=== PATIENT | female | born 1945 | race Caucasian/White ===

== ENCOUNTER 2016-10-24 17:54 | Emergency (ER) | payer OTHER ==
[~2016-10-24] VITALS: Ht 157.5 cm; Wt 97.5 kg
[~2016-10-24 17:54] MED LIST: CEPH-568 PO; FURO-149 PO; LISI-600 PO; WARF4TAB2 PO
[2016-10-24 17:55] VITALS: BP_SYST 133
--- NOTE | 2016-10-24 17:59 | NUR ---
Pt placed to ER waiting room in W/C, in stable condition. Dr. Glez made aware.
--- NOTE | 2016-10-24 18:03 | NUR ---
Patient to ER bed 4 to gown for evaluation. Side rails up. Report given to Orin IBARRA.
--- NOTE | 2016-10-24 18:05 | NUR ---
Pt. to ER AAox4 presented om wheelchair c/o swelling and pain to her right lower leg ankle and foot, states that she is unable to bear weight on affected foot, LROM of affected extremity, states has a Hx of DVT, c/o pain 03/01 denies SOB
--- NOTE | 2016-10-24 18:10 | NUR ---
Dr. Glez at bedside examining the pt.
--- NOTE | 2016-10-24 18:17 | NUR ---
lab at bedside for blood draw
[2016-10-24 18:23] LABS: BASOPHILS # (AUTO) 0.1 K/uL (0.0-0.2); BASOPHILS % (AUTO) 0.6 % (0.0-2.0); EOSINOPHILS # (AUTO) 0.1 K/uL (0.0-0.4); EOSINOPHILS % (AUTO) 1.4 % (0.0-4.0); HEMATOCRIT 32.3 % (36-48); HEMOGLOBIN 10.6 g/dL (12.0-16.0); LYMPHOCYTES # (AUTO) 1.2 K/uL (1.0-5.5); LYMPHOCYTES % (AUTO) 11.5 % (20.5-51.5); MEAN CORPUSCULAR HEMOGLOBIN 27 pg (27-31); MEAN CORPUSCULAR HGB CONC 33 % (32-36); MEAN CORPUSCULAR VOLUME 83 fL (79.0-98.0); MONOCYTES # (AUTO) 0.6 K/uL (0.0-1.0); MONOCYTES % (AUTO) 5.8 % (1.7-9.3); NEUTROPHILS # (AUTO) 8.6 K/uL (1.8-7.7); NEUTROPHILS % (AUTO) 80.7 % (40.0-70.0); PLATELET COUNT (AUTO) 288 K/uL (130-430); RED BLOOD CELL COUNT(AUTO) 3.88 MIL/uL (4.2-6.2); RED CELL DISTRIBUTION WIDTH 12.4 % (9.0-15.0); WHITE BLOOD COUNT (AUTO) 10.6 K/uL (4.8-10.8)
[2016-10-24 18:39] LABS: ANION GAP 8 (5-15); CALCIUM 9.2 mg/dL (8.4-11.0); CHLORIDE 102 mmol/L (98-107); CREATININE 2.23 mg/dL (0.55-1.30); GLUCOSE 107 mg/dL (70-99); POTASSIUM 4.5 mmol/L (3.5-5.1); SODIUM SERUM 135 mmol/L (136-145); UREA NITROGEN, BLOOD 52 mg/dL (8-21)
[2016-10-24 18:44] LABS: ALANINE AMINOTRANSFERASE 18 U/L (12-78); ALBUMIN 4.4 g/dL (3.4-4.8); ASPARTATE AMINOTRANSFERASE 20 U/L (10-37); TOTAL BILIRUBIN 0.6 mg/dL (0.0-1.0); TOTAL PROTEIN, SERUM 8.5 g/dL (6.4-8.3)
[2016-10-24 19:30] VITALS: BP_SYST 121
--- NOTE | 2016-10-24 19:30 | NUR ---
Patient given written and verbal discharge instructions and verbalizes understanding. ER MD Dr. Glez discussed with patient the results and treatment provided. Patient in stable condition. ID arm band removed. No Rx given. Patient educated on pain management and to follow up with PMD. Pain Scale 0/10 Opportunity for questions provided and answered.
== END 2016-10-24 19:30 | disposition home or self-care (01) ==
LOC: SED 17:54
DX: R60.0 Localized edema (principal); I12.9 Hypertensive chronic kidney disease with stage 1 through stage 4 chronic kidney disease, or unspecified chronic kidney disease; N18.9 Chronic kidney disease, unspecified; Z86.718 Personal history of other venous thrombosis and embolism
CPT/HCPCS: 36415; 80053; 85025; 85379; 93971; 99285

== ENCOUNTER 2018-01-22 06:28 | Emergency (ER) | payer OTHER ==
[~2018-01-22] VITALS: Ht 157.5 cm; Wt 99.8 kg
[~2018-01-22 06:28] MED LIST changes: -CEPH-568 PO; -FURO-149 PO
[2018-01-22 06:32] VITALS: BP_SYST 126
[2018-01-22] MEDS ORDERED: MORPHINE 4 MG/ML INJ. SYRINGE IM ONE (07:00)
[2018-01-22 07:45] VITALS: BP_SYST 136
== END 2018-01-22 07:46 | disposition home or self-care (01) ==
LOC: SED 06:28
DX: L03.115 Cellulitis of right lower limb (principal); I10 Essential (primary) hypertension; Z86.718 Personal history of other venous thrombosis and embolism
CPT/HCPCS: 96372; 99283; J2270

== ENCOUNTER 2018-01-25 19:45 | Inpatient (IN) | payer OTHER ==
[~2018-01-25] VITALS: Ht 157.5 cm; Wt 103.9 kg
[2018-01-25 20:00] VITALS: BP_SYST 138
[2018-01-25 20:25] VITALS: BP_SYST 154
[2018-01-25] MEDS ORDERED: DIPHENHYDRAMINE INJ 50 MG/ML VIAL IVP ONE (20:30)
[2018-01-25] MEDS ORDERED: MORPHINE 2 MG/ML INJ. SYRINGE IVP ONE (20:30)
[2018-01-25 20:52] LABS: EOSINOPHILS # (AUTO) 0.2 K/uL (0.0-0.4); HEMOGLOBIN 9.7 g/dL (12.0-16.0); MEAN CORPUSCULAR HEMOGLOBIN 28 pg (27-31); MEAN CORPUSCULAR VOLUME 83 fL (79.0-98.0); NEUTROPHILS # (AUTO) 9.1 K/uL (1.8-7.7)
[2018-01-25 20:58] LABS: BASOPHILS # (AUTO) 0.2 K/uL (0.0-0.2); BASOPHILS % (AUTO) 2.2 % (0.0-2.0); HEMATOCRIT 28.8 % (36-48); LYMPHOCYTES % (AUTO) 8.8 % (20.5-51.5); MEAN CORPUSCULAR HGB CONC 34 % (32-36); MONOCYTES # (AUTO) 0.6 K/uL (0.0-1.0); MONOCYTES % (AUTO) 5.7 % (1.7-9.3); NEUTROPHILS % (AUTO) 81.3 % (40.0-70.0); PLATELET COUNT (AUTO) 273 K/uL (130-430); RED BLOOD CELL COUNT(AUTO) 3.47 MIL/uL (4.2-6.2); RED CELL DISTRIBUTION WIDTH 12.3 % (9.0-15.0); WHITE BLOOD COUNT (AUTO) 11.1 K/uL (4.8-10.8)
[2018-01-25 21:08] LABS: PROTHROMBIN TIME 9.7 SECS (9.5-12.5)
[2018-01-25 21:16] LABS: ANION GAP 11 (5-15); CALCIUM 8.5 mg/dL (8.4-11.0); CHLORIDE 100 mmol/L (98-107); CREATININE 1.88 mg/dL (0.55-1.30); GLUCOSE 123 mg/dL (70-99); POTASSIUM 4.4 mmol/L (3.5-5.1); SODIUM SERUM 133 mmol/L (136-145); UREA NITROGEN, BLOOD 35 mg/dL (8-21)
[2018-01-25 21:29] LABS: TOTAL BILIRUBIN 0.6 mg/dL (0.0-1.0)
[2018-01-25 21:30] LABS: ALANINE AMINOTRANSFERASE 48 U/L (12-78); ALBUMIN 3.4 g/dL (3.4-4.8); ASPARTATE AMINOTRANSFERASE 29 U/L (10-37); URIC ACID 7.7 mg/dL (2.4-7.0)
[2018-01-25] MEDS ORDERED: FURO-149 PO (22:10)
[2018-01-25] MEDS ORDERED: ONDANSETRON HCL 4 MG/2 ML VIAL IVP PRN (23:00)
[2018-01-25] MEDS ORDERED: MORPHINE 2 MG/ML INJ. SYRINGE IVP PRN (23:00)
[2018-01-25] MEDS ORDERED: cefTRIAXone 1 GM IVPB PREMIX 50 ML IV SCH (23:00)
[2018-01-25] MEDS ORDERED: LORazepam 2 MG/ML VIAL IVP PRN (23:00)
[2018-01-25] MEDS ORDERED: ACETAMINOPHEN 325 MG TABLET PO PRN (23:00)
[2018-01-25] MEDS ORDERED: HYDROcodone/ACETAMIN 5-325 MG TAB (NORCO/ VICODIN) PO PRN (23:00)
[2018-01-25] MEDS ORDERED: HYDROcodone/ACETAMIN 10-325 MG TAB PO PRN (23:00)
[2018-01-25] MEDS: D5/0.45 NS 1,000 ML IV SCH (23:50)
[2018-01-26] MEDS ORDERED: cefTRIAXone 1 GM IVPB PREMIX 50 ML IV ONE (00:18)
[2018-01-26 06:16] LABS: BASOPHILS % (AUTO) 0.5 % (0.0-2.0); EOSINOPHILS # (AUTO) 0.3 K/uL (0.0-0.4); HEMATOCRIT 27.5 % (36-48); HEMOGLOBIN 9.3 g/dL (12.0-16.0); LYMPHOCYTES # (AUTO) 1.4 K/uL (1.0-5.5); LYMPHOCYTES % (AUTO) 17.8 % (20.5-51.5); MEAN CORPUSCULAR HEMOGLOBIN 29 pg (27-31); MEAN CORPUSCULAR HGB CONC 34 % (32-36); MEAN CORPUSCULAR VOLUME 84 fL (79.0-98.0); MONOCYTES # (AUTO) 0.6 K/uL (0.0-1.0); MONOCYTES % (AUTO) 7.7 % (1.7-9.3); NEUTROPHILS # (AUTO) 5.6 K/uL (1.8-7.7); PLATELET COUNT (AUTO) 252 K/uL (130-430); RED BLOOD CELL COUNT(AUTO) 3.25 MIL/uL (4.2-6.2); RED CELL DISTRIBUTION WIDTH 12.6 % (9.0-15.0); WHITE BLOOD COUNT (AUTO) 7.9 K/uL (4.8-10.8)
[2018-01-26 06:20] LABS: ANION GAP 8 (5-15); CALCIUM 8.2 mg/dL (8.4-11.0); CHLORIDE 105 mmol/L (98-107); CREATININE 1.76 mg/dL (0.55-1.30); GLUCOSE 110 mg/dL (70-99); POTASSIUM 4.6 mmol/L (3.5-5.1); SODIUM SERUM 137 mmol/L (136-145); UREA NITROGEN, BLOOD 34 mg/dL (8-21)
[2018-01-26 06:26] LABS: PHOSPHORUS 3.4 mg/dL (2.7-4.5)
[2018-01-26 08:04] VITALS: BP_SYST 104
[2018-01-26] MEDS: D5/0.45 NS 1,000 ML IV SCH ×2 (08:52→20:11)
[2018-01-26] MEDS: FUROSEMIDE 40 MG TABLET PO SCH (09:08)
[2018-01-26] MEDS: LISINOPRIL 20 MG TABLET PO SCH (09:08)
[2018-01-26 12:20] VITALS: BP_SYST 115
[2018-01-26] MEDS: INDOMETHACIN 25 MG CAPSULE(INDOCIN) PO SCH ×2 (15:11→20:11)
[2018-01-26] MEDS: VANCOMYCIN HCL 1,500 MG in NS 250 ML IV SCH (15:11)
[2018-01-26 16:15] VITALS: BP_SYST 123
[2018-01-26] MEDS: WARFARIN SODIUM 4 MG TABLET PO SCH (17:13)
[2018-01-26 20:00] VITALS: BP_SYST 104
[2018-01-26 23:40] VITALS: BP_SYST 114
[2018-01-27] MEDS: D5/0.45 NS 1,000 ML IV SCH ×3 (04:36→23:25)
[2018-01-27 06:58] LABS: BASOPHILS % (AUTO) 0.6 % (0.0-2.0); EOSINOPHILS # (AUTO) 0.5 K/uL (0.0-0.4); EOSINOPHILS % (AUTO) 6.1 % (0.0-4.0); HEMATOCRIT 31.4 % (36-48); HEMOGLOBIN 10.5 g/dL (12.0-16.0); LYMPHOCYTES # (AUTO) 1.8 K/uL (1.0-5.5); LYMPHOCYTES % (AUTO) 22.4 % (20.5-51.5); MEAN CORPUSCULAR HEMOGLOBIN 28 pg (27-31); MEAN CORPUSCULAR HGB CONC 33 % (32-36); MEAN CORPUSCULAR VOLUME 85 fL (79.0-98.0); MONOCYTES # (AUTO) 0.6 K/uL (0.0-1.0); MONOCYTES % (AUTO) 6.9 % (1.7-9.3); NEUTROPHILS # (AUTO) 5.1 K/uL (1.8-7.7); PLATELET COUNT (AUTO) 306 K/uL (130-430); RED BLOOD CELL COUNT(AUTO) 3.72 MIL/uL (4.2-6.2); RED CELL DISTRIBUTION WIDTH 12.5 % (9.0-15.0)
[2018-01-27 07:03] LABS: ANION GAP 13 (5-15); C-REACTIVE PROTEIN QUANT 7.4 mg/dL (0-0.5); CALCIUM 8.4 mg/dL (8.4-11.0); CHLORIDE 103 mmol/L (98-107); CREATININE 2.23 mg/dL (0.55-1.30); GLUCOSE 81 mg/dL (70-99); POTASSIUM 4.4 mmol/L (3.5-5.1); SODIUM SERUM 137 mmol/L (136-145); UREA NITROGEN, BLOOD 38 mg/dL (8-21); URIC ACID 7.4 mg/dL (2.4-7.0)
[2018-01-27 07:48] LABS: ERYTHROCYTE SEDIMENTATION RATE 78 MM/HR (0-20)
[2018-01-27 08:00] VITALS: BP_SYST 112
[2018-01-27 08:09] LABS: PROTHROMBIN TIME 9.8 SECS (9.5-12.5)
[2018-01-27] MEDS: FUROSEMIDE 40 MG TABLET PO SCH (08:46)
[2018-01-27] MEDS: INDOMETHACIN 25 MG CAPSULE(INDOCIN) PO SCH ×3 (08:46→20:07)
[2018-01-27] MEDS: LISINOPRIL 20 MG TABLET PO SCH (08:47)
[2018-01-27 12:20] VITALS: BP_SYST 114
[2018-01-27 16:02] VITALS: BP_SYST 118
[2018-01-27] MEDS: WARFARIN SODIUM 4 MG TABLET PO SCH (17:37)
[2018-01-27 19:37] VITALS: BP_SYST 119
[2018-01-27 23:28] VITALS: BP_SYST 112
[2018-01-28 06:49] LABS: PROTHROMBIN TIME 10.2 SECS (9.5-12.5)
[2018-01-28 06:51] LABS: BASOPHILS % (AUTO) 0.2 % (0.0-2.0); EOSINOPHILS # (AUTO) 0.5 K/uL (0.0-0.4); EOSINOPHILS % (AUTO) 6.2 % (0.0-4.0); HEMATOCRIT 28.3 % (36-48); HEMOGLOBIN 9.5 g/dL (12.0-16.0); LYMPHOCYTES # (AUTO) 1.1 K/uL (1.0-5.5); MEAN CORPUSCULAR HEMOGLOBIN 28 pg (27-31); MEAN CORPUSCULAR HGB CONC 33 % (32-36); MEAN CORPUSCULAR VOLUME 84 fL (79.0-98.0); MONOCYTES # (AUTO) 0.5 K/uL (0.0-1.0); MONOCYTES % (AUTO) 6.7 % (1.7-9.3); NEUTROPHILS # (AUTO) 5.8 K/uL (1.8-7.7); NEUTROPHILS % (AUTO) 72.9 % (40.0-70.0); PLATELET COUNT (AUTO) 271 K/uL (130-430); RED BLOOD CELL COUNT(AUTO) 3.36 MIL/uL (4.2-6.2); RED CELL DISTRIBUTION WIDTH 12.2 % (9.0-15.0); WHITE BLOOD COUNT (AUTO) 7.9 K/uL (4.8-10.8)
[2018-01-28 07:21] LABS: ALANINE AMINOTRANSFERASE 40 U/L (12-78); ALBUMIN 2.8 g/dL (3.4-4.8); ANION GAP 9 (5-15); ASPARTATE AMINOTRANSFERASE 17 U/L (10-37); C-REACTIVE PROTEIN QUANT 5.1 mg/dL (0-0.5); CALCIUM 8.2 mg/dL (8.4-11.0); CHLORIDE 103 mmol/L (98-107); CREATININE 2.48 mg/dL (0.55-1.30); GLUCOSE 112 mg/dL (70-99); PHOSPHORUS 4.3 mg/dL (2.7-4.5); POTASSIUM 4.6 mmol/L (3.5-5.1); SODIUM SERUM 133 mmol/L (136-145); TOTAL BILIRUBIN 0.4 mg/dL (0.0-1.0); UREA NITROGEN, BLOOD 44 mg/dL (8-21); URIC ACID 7.6 mg/dL (2.4-7.0)
[2018-01-28 08:44] LABS: ERYTHROCYTE SEDIMENTATION RATE 59 MM/HR (0-20)
[2018-01-28] MEDS: INDOMETHACIN 25 MG CAPSULE(INDOCIN) PO SCH ×3 (09:21→18:52)
[2018-01-28] MEDS: LISINOPRIL 20 MG TABLET PO SCH (09:21)
[2018-01-28] MEDS: FUROSEMIDE 40 MG TABLET PO SCH (09:22)
[2018-01-28] MEDS: D5/0.45 NS 1,000 ML IV SCH ×2 (11:11→22:26)
[2018-01-28 12:13] VITALS: BP_SYST 101
[2018-01-28] MEDS: VANCOMYCIN HCL 1,500 MG in NS 250 ML IV SCH (14:25)
[2018-01-28 16:00] VITALS: BP_SYST 109
[2018-01-28] MEDS: WARFARIN SODIUM 4 MG TABLET PO SCH (18:58)
[2018-01-28 20:00] VITALS: BP_SYST 108
[2018-01-29 00:13] VITALS: BP_SYST 127
[2018-01-29 07:09] LABS: INR 1.1 (0.8-1.2); PROTHROMBIN TIME 10.7 SECS (9.5-12.5)
[2018-01-29 07:14] LABS: ANION GAP 11 (5-15); C-REACTIVE PROTEIN QUANT 4.5 mg/dL (0-0.5); CHLORIDE 105 mmol/L (98-107); CREATININE 2.52 mg/dL (0.55-1.30); GLUCOSE 105 mg/dL (70-99); PHOSPHORUS 3.7 mg/dL (2.7-4.5); POTASSIUM 4.5 mmol/L (3.5-5.1); SODIUM SERUM 136 mmol/L (136-145); UREA NITROGEN, BLOOD 47 mg/dL (8-21)
[2018-01-29 07:17] LABS: BASOPHILS % (AUTO) 0.3 % (0.0-2.0); EOSINOPHILS # (AUTO) 0.5 K/uL (0.0-0.4); EOSINOPHILS % (AUTO) 5.7 % (0.0-4.0); HEMATOCRIT 27.3 % (36-48); HEMOGLOBIN 9.1 g/dL (12.0-16.0); LYMPHOCYTES % (AUTO) 11.5 % (20.5-51.5); MEAN CORPUSCULAR HEMOGLOBIN 28 pg (27-31); MEAN CORPUSCULAR HGB CONC 33 % (32-36); MEAN CORPUSCULAR VOLUME 83 fL (79.0-98.0); MONOCYTES # (AUTO) 0.6 K/uL (0.0-1.0); NEUTROPHILS # (AUTO) 6.7 K/uL (1.8-7.7); NEUTROPHILS % (AUTO) 75.5 % (40.0-70.0); PLATELET COUNT (AUTO) 265 K/uL (130-430); RED BLOOD CELL COUNT(AUTO) 3.31 MIL/uL (4.2-6.2); RED CELL DISTRIBUTION WIDTH 12.4 % (9.0-15.0); WHITE BLOOD COUNT (AUTO) 8.8 K/uL (4.8-10.8)
[2018-01-29 08:01] LABS: ERYTHROCYTE SEDIMENTATION RATE 55 MM/HR (0-20)
[2018-01-29 08:29] VITALS: BP_SYST 116
[2018-01-29] MEDS ORDERED: LISINOPRIL 10 MG TABLET (PRINIVIL) PO SCH (09:00)
[2018-01-29] MEDS: FUROSEMIDE 40 MG TABLET PO SCH (09:49)
[2018-01-29] MEDS: INDOMETHACIN 25 MG CAPSULE(INDOCIN) PO SCH ×3 (09:50→22:32)
[2018-01-29] MEDS: D5/0.45 NS 1,000 ML IV SCH ×2 (10:10→22:31)
[2018-01-29 12:00] VITALS: BP_SYST 105
[2018-01-29 15:41] VITALS: BP_SYST 103
[2018-01-29] MEDS: WARFARIN SODIUM 4 MG TABLET PO SCH (18:01)
[2018-01-29] MEDS: DOXYCYCLINE HYCLATE 100 MG CAPSULE PO SCH (22:32)
[2018-01-30 01:10] VITALS: BP_SYST 115
[2018-01-30 07:22] LABS: ALANINE AMINOTRANSFERASE 29 U/L (12-78); ALBUMIN 2.6 g/dL (3.4-4.8); ANION GAP 9 (5-15); ASPARTATE AMINOTRANSFERASE 15 U/L (10-37); C-REACTIVE PROTEIN QUANT 4.6 mg/dL (0-0.5); CALCIUM 7.8 mg/dL (8.4-11.0); CHLORIDE 110 mmol/L (98-107); CREATININE 2.37 mg/dL (0.55-1.30); GLUCOSE 121 mg/dL (70-99); PHOSPHORUS 4.1 mg/dL (2.7-4.5); SODIUM SERUM 140 mmol/L (136-145); TOTAL BILIRUBIN 0.3 mg/dL (0.0-1.0); UREA NITROGEN, BLOOD 47 mg/dL (8-21); VANCOMYCIN,RANDOM 18.8 ug/mL
[2018-01-30 07:34] LABS: TOTAL IRON BIND. CAPACITY 146 ug/dL (250-450)
[2018-01-30 07:50] LABS: HEMATOCRIT 24.1 % (36-48); HEMOGLOBIN 8.5 g/dL (12.0-16.0); MEAN CORPUSCULAR HEMOGLOBIN 30 pg (27-31); MEAN CORPUSCULAR HGB CONC 35 % (32-36); MEAN CORPUSCULAR VOLUME 84 fL (79.0-98.0); PLATELET COUNT (AUTO) 291 K/uL (130-430); RED BLOOD CELL COUNT(AUTO) 2.86 MIL/uL (4.2-6.2); RED CELL DISTRIBUTION WIDTH 12.1 % (9.0-15.0); WHITE BLOOD COUNT (AUTO) 8.8 K/uL (4.8-10.8)
[2018-01-30 08:46] VITALS: BP_SYST 94
[2018-01-30 08:59] LABS: ERYTHROCYTE SEDIMENTATION RATE 51 MM/HR (0-20)
[2018-01-30] MEDS: LISINOPRIL 5 MG TABLET PO SCH (09:00)
[2018-01-30] MEDS: FUROSEMIDE 40 MG TABLET PO SCH (09:40)
[2018-01-30] MEDS: DOXYCYCLINE HYCLATE 100 MG CAPSULE PO SCH ×2 (09:40→20:45)
[2018-01-30 10:22] LABS: BAND % (MANUAL) 6 % (0-6); BASOPHILS % (MANUAL) 0 % (0-2); EOSINOPHILS % (MANUAL) 5 % (0-7); LYMPHOCYTES % (MANUAL) 17 % (20-46); MONOCYTES % (MANUAL) 3 % (0-11)
[2018-01-30 12:15] VITALS: BP_SYST 118
[2018-01-30] MEDS ORDERED: DOXY100C2 PO (12:42)
[2018-01-30 16:20] VITALS: BP_SYST 147
[2018-01-30] MEDS: WARFARIN SODIUM 4 MG TABLET PO SCH (19:31)
[2018-01-30 20:00] VITALS: BP_SYST 107
[2018-01-31] VITALS: BP_SYST 111
[2018-01-31 07:17] LABS: INR 1.3 (0.8-1.2); PROTHROMBIN TIME 13.2 SECS (9.5-12.5)
[2018-01-31 07:24] LABS: BASOPHILS % (AUTO) 0.4 % (0.0-2.0); EOSINOPHILS # (AUTO) 0.5 K/uL (0.0-0.4); EOSINOPHILS % (AUTO) 5.1 % (0.0-4.0); HEMOGLOBIN 9.5 g/dL (12.0-16.0); LYMPHOCYTES # (AUTO) 1.1 K/uL (1.0-5.5); LYMPHOCYTES % (AUTO) 12.2 % (20.5-51.5); MEAN CORPUSCULAR HEMOGLOBIN 28 pg (27-31); MEAN CORPUSCULAR HGB CONC 34 % (32-36); MEAN CORPUSCULAR VOLUME 83 fL (79.0-98.0); MONOCYTES # (AUTO) 0.5 K/uL (0.0-1.0); MONOCYTES % (AUTO) 5.9 % (1.7-9.3); NEUTROPHILS # (AUTO) 6.9 K/uL (1.8-7.7); NEUTROPHILS % (AUTO) 76.4 % (40.0-70.0); PLATELET COUNT (AUTO) 289 K/uL (130-430); RED BLOOD CELL COUNT(AUTO) 3.37 MIL/uL (4.2-6.2); RED CELL DISTRIBUTION WIDTH 12.4 % (9.0-15.0)
[2018-01-31 07:29] LABS: ALANINE AMINOTRANSFERASE 29 U/L (12-78); ALBUMIN 3.1 g/dL (3.4-4.8); ANION GAP 12 (5-15); ASPARTATE AMINOTRANSFERASE 18 U/L (10-37); CALCIUM 8.8 mg/dL (8.4-11.0); CHLORIDE 107 mmol/L (98-107); CREATININE 2.18 mg/dL (0.55-1.30); GLUCOSE 97 mg/dL (70-99); POTASSIUM 4.7 mmol/L (3.5-5.1); SODIUM SERUM 138 mmol/L (136-145); TOTAL BILIRUBIN 0.4 mg/dL (0.0-1.0); UREA NITROGEN, BLOOD 44 mg/dL (8-21)
[2018-01-31] MEDS ORDERED: WARFARIN SODIUM 5 MG TABLET PO SCH (07:36)
[2018-01-31 08:22] VITALS: BP_SYST 124
[2018-01-31] MEDS: FUROSEMIDE 40 MG TABLET PO SCH (08:29)
[2018-01-31] MEDS: DOXYCYCLINE HYCLATE 100 MG CAPSULE PO SCH (08:29)
[2018-01-31] MEDS: LISINOPRIL 5 MG TABLET PO SCH (08:29)
[2018-01-31 12:00] VITALS: BP_SYST 129
[2018-01-31 13:17] VITALS: BP_SYST 129
[2018-01-31 15:04] VITALS: BP_SYST 131
== END 2018-01-31 17:46 | disposition home or self-care (01) | DRG 602 ==
LOC: SED 19:45 → SMU 22:03
PROVIDERS: ADMIT Preventive Medicine Preventive Medicine/Occupational Environmental Medicine; ATTEND Preventive Medicine Preventive Medicine/Occupational Environmental Medicine
DX: L03.115 Cellulitis of right lower limb (principal); N17.0 Acute kidney failure with tubular necrosis; E87.1 Hypo-osmolality and hyponatremia; R17 Unspecified jaundice; Z68.41 Body mass index [BMI] 40.0-44.9, adult; N17.9 Acute kidney failure, unspecified; I82.509 Chronic embolism and thrombosis of unspecified deep veins of unspecified lower extremity; M10.9 Gout, unspecified; I10 Essential (primary) hypertension; D64.9 Anemia, unspecified; E78.5 Hyperlipidemia, unspecified; N18.3 Chronic kidney disease, stage 3 (moderate); M19.071 Primary osteoarthritis, right ankle and foot; M19.072 Primary osteoarthritis, left ankle and foot; E66.01 Morbid (severe) obesity due to excess calories; I25.10 Atherosclerotic heart disease of native coronary artery without angina pectoris; I12.9 Hypertensive chronic kidney disease with stage 1 through stage 4 chronic kidney disease, or unspecified chronic kidney disease; R73.9 Hyperglycemia, unspecified; E83.41 Hypermagnesemia; E83.51 Hypocalcemia; E83.52 Hypercalcemia; Z95.0 Presence of cardiac pacemaker; Z79.899 Other long term (current) drug therapy; Z79.01 Long term (current) use of anticoagulants
CPT/HCPCS: 36415; 73721; 76700-TC; 80048; 80053; 80202-TC; 83540-TC; 83550-TC; 83605; 83735-TC; 84100-TC; 84550-TC; 85007; 85025; 85027; 85610-TC; 85651-TC; 85730-TC; 86140; 87040-TC; 93971; 96374; 96375; 97110-GP; 97116-GP; 97530-GP; 99285; J0696; J1200; J2270; J3370; J7050

== ENCOUNTER 2018-06-26 17:45 | Emergency (ER) | payer OTHER ==
[~2018-06-26 17:45] MED LIST changes: +DOXY100C2 PO; +FURO-149 PO; -LISI-600 PO
[2018-06-26] MEDS ORDERED: KETOROLAC TROMETHAMINE 30 MG VIAL ONE (18:44)
[2018-06-26] MEDS ORDERED: cefTRIAXone 1 GM IVPB PREMIX 0 ML IV ONE (18:46)
[2018-06-26] MEDS ORDERED: cefTRIAXone 1 GM VIAL ONE (18:54)
[2018-06-27 14:15] LABS: HEMATOCRIT 32.2 % (36-48); HEMOGLOBIN 10.4 g/dL (12.0-16.0); MEAN CORPUSCULAR HEMOGLOBIN 27 pg (27-31); MEAN CORPUSCULAR HGB CONC 32 % (32-36); MEAN CORPUSCULAR VOLUME 83 fL (79.0-98.0); RED BLOOD CELL COUNT(AUTO) 3.89 MIL/uL (4.2-6.2); WHITE BLOOD COUNT (AUTO) 11.1 K/uL (4.8-10.8)
[2018-06-27 14:16] LABS: BASOPHILS # (AUTO) 0.2 K/uL (0.0-0.2); BASOPHILS % (AUTO) 2.2 % (0.0-2.0); EOSINOPHILS # (AUTO) 0.2 K/uL (0.0-0.4); EOSINOPHILS % (AUTO) 1.6 % (0.0-4.0); LYMPHOCYTES # (AUTO) 1.1 K/uL (1.0-5.5); LYMPHOCYTES % (AUTO) 10.1 % (20.5-51.5); MONOCYTES % (AUTO) 8.9 % (1.7-9.3); NEUTROPHILS # (AUTO) 8.6 K/uL (1.8-7.7); PLATELET COUNT (AUTO) 262 K/uL (130-430); RED CELL DISTRIBUTION WIDTH 13.1 % (9.0-15.0)
[2018-06-27 14:17] LABS: ERYTHROCYTE SEDIMENTATION RATE 38 MM/HR (0-20)
[2018-06-27 14:18] LABS: NEUTROPHILS % (AUTO) 77.2 % (40.0-70.0)
[2018-06-27 14:20] LABS: CHLORIDE 104 mmol/L (98-107); POTASSIUM 4.2 mmol/L (3.5-5.1); SODIUM SERUM 135 mmol/L (136-145)
[2018-06-27 14:21] LABS: ALANINE AMINOTRANSFERASE 18 U/L (12-78); ANION GAP 9 (5-15); ASPARTATE AMINOTRANSFERASE 17 U/L (10-37); CALCIUM 8.7 mg/dL (8.4-11.0); CREATININE 1.81 mg/dL (0.55-1.30); GLUCOSE 105 mg/dL (70-99); TOTAL BILIRUBIN 0.6 mg/dL (0.0-1.0); UREA NITROGEN, BLOOD 31 mg/dL (8-21)
[2018-06-27 14:22] LABS: ALBUMIN 3.5 g/dL (3.4-4.8); C-REACTIVE PROTEIN QUANT 11.9 mg/dL (0-0.5)
== END 2018-06-26 21:22 | disposition home or self-care (01) ==
LOC: SED 17:45
DX: L53.8 Other specified erythematous conditions (principal); M13.0 Polyarthritis, unspecified; Z86.718 Personal history of other venous thrombosis and embolism
CPT/HCPCS: 36415; 80053; 85025; 85651; 86140; 87040; 93971; 96372; 99284; J0696; J1885

== ENCOUNTER 2018-09-28 22:46 | Emergency (ER) | payer OTHER ==
[~2018-09-28] VITALS: Ht 157.5 cm; Wt 106.6 kg
[2018-09-28 23:05] VITALS: BP_SYST 183
--- NOTE | 2018-09-28 23:09 | NUR ---
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 Pain exacerbated by movement. Denies N/V/D, no dysuria.
--- NOTE | 2018-09-28 23:09 | NUR ---
Placed in room 03 . Placed on rn cardiac cath, blood pressure machine and pulse oximeter. To gown for exam. Side rails up. Report given to Leonard IBARRA.
[2018-09-28] MEDS ORDERED: NACL 0.9% 1,000 ML IV ONE (23:14)
--- NOTE | 2018-09-28 23:20 | NUR ---
Dr. Ochoa at bedside.
[2018-09-28 23:23] LABS: BILIRUBIN,URINE NEGATIVE (NEGATIVE); BLOOD, URINE 2+ (NEGATIVE); CLARITY/URINE CLEAR (CLEAR); COLOR,URINE YELLOW (YELLOW); GLUCOSE,URINE NEGATIVE (NEGATIVE); KETONES,URINE NEGATIVE (NEGATIVE); LEUKOCYTE ESTERASE ,URINE TRACE (NEGATIVE); NITRITE, URINE NEGATIVE (NEGATIVE); PH,URINE 5.5 (5.0-8.0); PROTEIN URINE NEGATIVE (NEGATIVE); UROBILINOGEN,URINE 0.2 (0.2-1.0)
[2018-09-28 23:29] LABS: BACTERIA,URINE FEW /HPF (None Seen)
[2018-09-28] MEDS ORDERED: MORPHINE 4 MG/ML INJ. SYRINGE IVP ONE (23:30)
[2018-09-28] MEDS ORDERED: ONDANSETRON HCL 4 MG/2 ML VIAL IVP ONE (23:30)
--- NOTE | 2018-09-28 23:30 | NUR ---
# 20 gauge angiocath placed to LAC. Use of asceptic technique. Opsite placed over site. Blood return noted. Blood for lab drawn from site. Flushed with 10 cc of normal saline. No evidence of infiltration noted. Patient tolerated well.
[2018-09-28 23:32] LABS: BASOPHILS % (AUTO) 0.6 % (0.0-2.0); EOSINOPHILS # (AUTO) 0.4 K/uL (0.0-0.4); EOSINOPHILS % (AUTO) 4.2 % (0.0-4.0); HEMATOCRIT 30.8 % (36-48); HEMOGLOBIN 10.1 g/dL (12.0-16.0); LYMPHOCYTES # (AUTO) 1.3 K/uL (1.0-5.5); LYMPHOCYTES % (AUTO) 15.3 % (20.5-51.5); MEAN CORPUSCULAR HEMOGLOBIN 27 pg (27-31); MEAN CORPUSCULAR HGB CONC 33 % (32-36); MEAN CORPUSCULAR VOLUME 83 fL (79.0-98.0); MONOCYTES # (AUTO) 0.6 K/uL (0.0-1.0); MONOCYTES % (AUTO) 6.7 % (1.7-9.3); NEUTROPHILS # (AUTO) 6.2 K/uL (1.8-7.7); NEUTROPHILS % (AUTO) 73.2 % (40.0-70.0); PLATELET COUNT (AUTO) 244 K/uL (130-430); RED BLOOD CELL COUNT(AUTO) 3.72 MIL/uL (4.2-6.2); RED CELL DISTRIBUTION WIDTH 14.3 % (9.0-15.0); WHITE BLOOD COUNT (AUTO) 8.4 K/uL (4.8-10.8)
[2018-09-28 23:46] LABS: ANION GAP 9 (5-15); CALCIUM 9.9 mg/dL (8.4-11.0); CHLORIDE 107 mmol/L (98-107); CREATININE 1.62 mg/dL (0.55-1.30); GLUCOSE 110 mg/dL (70-99); SODIUM SERUM 141 mmol/L (136-145); UREA NITROGEN, BLOOD 26 mg/dL (8-21)
[2018-09-28 23:48] LABS: INR 1.3 (0.8-1.2)
[2018-09-28 23:55] LABS: ALANINE AMINOTRANSFERASE 17 U/L (12-78); ALBUMIN 3.4 g/dL (3.4-4.8); AMYLASE 67 U/L (0-100); ASPARTATE AMINOTRANSFERASE 19 U/L (10-37); LIPASE 163 U/L (73-393); TOTAL BILIRUBIN 0.4 mg/dL (0.0-1.0)
--- NOTE | 2018-09-29 00:40 | NUR ---
Pt continues to c/o RUQ abdominal pain. Dr. Ochoa notified.
[2018-09-29] MEDS ORDERED: MORPHINE 4 MG/ML INJ. SYRINGE IVP ONE (00:45)
--- NOTE | 2018-09-29 02:00 | NUR ---
Pt verbalizes improvement in pain. No needs verbalized at this time. NS continues to infuse to patent PIV LAC, no s/s infiltration. VSS, NAD.
[2018-09-29 02:46] VITALS: BP_SYST 142
--- NOTE | 2018-09-29 02:46 | NUR ---
Patient given written and verbal discharge instructions and verbalizes understanding. ER MD discussed with patient the results and treatment provided. Patient in stable condition. ID arm band removed. IV catheter removed intact and dressing applied, no active bleeding. Rx of [place]omet given. Patient educated on pain management and to follow up with PMD. Pain Scale 2/10. Opportunity for questions provided and answered. Medication side effect fact sheet provided.
== END 2018-09-29 02:46 | disposition home or self-care (01) ==
LOC: SED 22:46
DX: N20.0 Calculus of kidney (principal); I10 Essential (primary) hypertension; E78.00 Pure hypercholesterolemia, unspecified; Z90.49 Acquired absence of other specified parts of digestive tract; Z86.718 Personal history of other venous thrombosis and embolism
CPT/HCPCS: 36415; 74176; 80053; 81000; 82150; 83690; 85025; 85610; 96361; 96374; 96375; 99284; J2270 ×2; J2405; J7030

== ENCOUNTER 2019-11-04 16:37 | Inpatient (IN) | payer OTHER, SELFPAY ==
[~2019-11-04] VITALS: Ht 152.4 cm; Wt 103.9 kg
[2019-11-04 16:45] VITALS: BP_SYST 99
--- NOTE | 2019-11-04 16:45 | NUR ---
Patient to ER bed 07 to gown for evaluation. Side rails up. Report given to FRED Worrell
[2019-11-04] MEDS ORDERED: NACL 0.9% 1,000 ML IV ONE (16:51)
[2019-11-04] MEDS ORDERED: ALBUTEROL SULFATE 0.083% 2.5 MG/3 ML VIAL.NEB INH ONE (17:00)
[2019-11-04] MEDS ORDERED: methylPREDNISolone SOD SUCC/PF 62.5 MG/ML VIAL IVP ONE (17:00)
[2019-11-04] MEDS ORDERED: ONDANSETRON HCL 4 MG/2 ML VIAL IVP ONE (17:00)
[2019-11-04] MEDS ORDERED: MORPHINE 4 MG/ML INJ. SYRINGE IVP ONE (17:00)
[2019-11-04] MEDS ORDERED: cefTRIAXone 1 GM IVPB PREMIX 50 ML IV ONE (17:00)
[2019-11-04] MEDS ORDERED: IPRATROPIUM BROM 0.5 MG/2.5 ML VIAL.NEB (ATROVENT) INH ONE (17:00)
--- NOTE | 2019-11-04 17:00 | NUR ---
Patient arrived via POV, with family for c/c of shortness of breath. Patient states she has been sick for the past 3-4 weeks with shortness of breath, cough, abdominal pain, weakness. Patient states she also has nausea without vomiting. Patient states abdominal pain is constant and throughout abdomen. Patient has history of DVT with warfarin. Patient has no reported fever. Will continue to follow up and monitor.
--- NOTE | 2019-11-04 17:04 | NUR ---
ER at bedside examining patient.
[2019-11-04] MEDS ORDERED: CLOPIDOGREL BISULFATE 75 MG TABLET PO ONE (17:15)
[2019-11-04] MEDS ORDERED: ASPIRIN 81 MG TAB.CHEW PO ONE (17:15)
--- NOTE | 2019-11-04 17:50 | NUR ---
# 16 FR In and Out catheter with use of sterile technique. Immediate return of 50 ml dark yellow urine noted. Urine sample collected and sent to lab. Pt tolerated procedure well. Patient unable to toilet self, to remain on registered nurse cardiac telemetry, unable to use bedpan.
--- NOTE | 2019-11-04 18:00 | NUR ---
# 20 gauge angiocath placed to LAC. Use of asceptic technique. Opsite placed over site. Blood return noted. Blood for lab not drawn from site. Flushed with 10 cc of normal saline. No evidence of infiltration noted. Patient tolerated well.
[2019-11-04 18:14] LABS: BLOOD, URINE 2+ (NEGATIVE); CLARITY/URINE CLOUDY (CLEAR); COLOR,URINE YELLOW (YELLOW); GLUCOSE,URINE NEGATIVE (NEGATIVE); KETONES,URINE TRACE (NEGATIVE); LEUKOCYTE ESTERASE ,URINE 3+ (NEGATIVE); NITRITE, URINE NEGATIVE (NEGATIVE); PH,URINE 5.5 (5.0-8.0); PROTEIN URINE 1+ (NEGATIVE); UROBILINOGEN,URINE 0.2 (0.2-1.0)
[2019-11-04 18:15] LABS: BASOPHILS % (AUTO) 0.4 % (0.0-2.0); EOSINOPHILS % (AUTO) 0.1 % (0.0-4.0); HEMATOCRIT 35.6 % (36-48); HEMOGLOBIN 11.5 g/dL (12.0-16.0); LYMPHOCYTES # (AUTO) 1.1 K/uL (1.0-5.5); LYMPHOCYTES % (AUTO) 16.5 % (20.5-51.5); MEAN CORPUSCULAR HEMOGLOBIN 27 pg (27-31); MEAN CORPUSCULAR HGB CONC 32 % (32-36); MEAN CORPUSCULAR VOLUME 82 fL (79.0-98.0); MONOCYTES # (AUTO) 0.8 K/uL (0.0-1.0); MONOCYTES % (AUTO) 12.2 % (1.7-9.3); NEUTROPHILS # (AUTO) 4.5 K/uL (1.8-7.7); NEUTROPHILS % (AUTO) 70.8 % (40.0-70.0); PLATELET COUNT (AUTO) 202 K/uL (130-430); RED BLOOD CELL COUNT(AUTO) 4.34 MIL/uL (4.2-6.2); RED CELL DISTRIBUTION WIDTH 14.2 % (9.0-15.0); WHITE BLOOD COUNT (AUTO) 6.4 K/uL (4.8-10.8)
[2019-11-04 18:30] LABS: ANION GAP 15 (5-15); CALCIUM 7.9 mg/dL (8.4-11.0); CHLORIDE 99 mmol/L (98-107); CREATININE 2.62 mg/dL (0.55-1.30); GLUCOSE 127 mg/dL (70-99); POTASSIUM 4.3 mmol/L (3.5-5.1); SODIUM SERUM 130 mmol/L (136-145); UREA NITROGEN, BLOOD 53 mg/dL (8-21)
[2019-11-04 18:34] LABS: INR 1.2 (0.8-1.2); PROTHROMBIN TIME 12.1 SECS (9.5-12.5)
[2019-11-04 18:45] LABS: ALANINE AMINOTRANSFERASE 27 U/L (12-78); ALBUMIN 3.3 g/dL (3.4-4.8); AMYLASE 47 U/L (0-100); ASPARTATE AMINOTRANSFERASE 36 U/L (10-37); FREE T4 (FREE THYROXINE) 1.4 ng/dl (0.8-1.5); LIPASE 135 U/L (73-393); THYROID STIMULATING HORMONE 0.95 uIu/mL (0.36-3.74); TOTAL BILIRUBIN 0.8 mg/dL (0.0-1.0)
[2019-11-04 18:54] LABS: BACTERIA,URINE MODERATE /HPF (None Seen); RBC,URINE 20-50 /HPF (0-3); WBC,URINE 80-100 /HPF (0-3)
[2019-11-04 18:55] LABS: YEAST,URINE Few /HPF (None Seen)
[2019-11-04 19:22] LABS: BILIRUBIN,URINE 1+ (NEGATIVE)
--- NOTE | 2019-11-04 19:27 | NUR ---
CALLED TELE TO REQUEST FOR A BED. ADMIT ORDERS FROM DR. MURRIETA HAVE BEEN RECEIVED AND PUT IN.
[2019-11-04] MEDS ORDERED: PIPERACILLIN/TAZO 2.25G/DEX-IS 50 ML IV ONE (19:30)
[2019-11-04] MEDS ORDERED: AZITHROMYCIN 500 MG in NS 250 ML IV ONE (19:30)
--- NOTE | 2019-11-04 19:40 | NUR ---
Report given to FRED Zavala. Made aware of pending admission.
--- NOTE | 2019-11-04 20:10 | NUR ---
Called for Tele bed, not available. RN to call back
[2019-11-04] MEDS: NACL 0.9% 1,000 ML IV SCH ×2 (20:17→20:56)
[2019-11-04] MEDS ORDERED: AZITHROMYCIN 500 MG/VIAL (ZITHROMAX) IV ONE ×2 (20:28→23:28)
--- NOTE | 2019-11-04 20:40 | NUR ---
Called for Tele bed, not available. RN to call back
--- NOTE | 2019-11-04 20:58 | NUR ---
pt alert and oriented. able to make needs known. no acute distress noted. no SOB. VSS
[2019-11-04] MEDS ORDERED: PANTOPRAZOLE SODIUM 40 MG TAB PO ONE (23:00)
[2019-11-04] MEDS ORDERED: *LOVENOX0.75MG/KG Q12H/PHARMACY XX ONE (23:00)
[2019-11-04] MEDS: SODIUM BICARBONATE 650 MG TABLET PO SCH ×2 (23:07→23:47)
[2019-11-04] MEDS: PIPERACILLIN/TAZO 2.25G/DEX-IS 50 ML IV SCH (23:07)
--- NOTE | 2019-11-04 23:20 | NUR ---
Called for Tele bed, pt is going to bed 127 B, bed not available, still for cleaning.
--- NOTE | 2019-11-04 23:24 | NUR ---
PT IN BED, NO DISTRESS NOTED. VSS
[2019-11-04] MEDS ORDERED: ALBUTEROL MDI INHALATION 8 GM INH INH PRN (23:30)
[2019-11-04] MEDS ORDERED: ACETAMINOPHEN 325 MG TABLET PO PRN (23:30)
[2019-11-04] MEDS ORDERED: SODIUM BICARBONATE 650 MG TABLET ONE (23:44)
[2019-11-04] MEDS: AZITHROMYCIN 500 MG in NS 250 ML IV SCH (23:48)
[2019-11-04] MEDS ORDERED: ENOXAPARIN SODIUM 100 MG/ML SYRINGE ONE (23:49)
--- NOTE | 2019-11-05 00:40 | NUR ---
ADMIT NOTE Received pt from ER to the floor with a diagnosis of acute respiratory failure and pneumonia. Admission process initiated. patient oriented to pain management, safety and call light-teach back done.
--- NOTE | 2019-11-05 00:52 | NUR ---
Patient will be admitted to care of DR. CUNNINGHAM. Admitted to TELE unit. Will go to room 127. Belongings list completed. Complete and up to date summary report printed. SBAR report to be given at bedside with opportunity for questions.
--- NOTE | 2019-11-05 00:55 | NUR ---
NOTES PATIENT IN BED, AWAKE, ALERT, ORIENTED, VITALS STABLE. DENIES ANY PAIN AND DISCOMFORT AT THIS TIME. ASSESSMENT DONE AND DOCUMENTED. SEE FLOWSHEET. PLAN OF CARE DISCUSSED AND PATIENT VERBALIZED UNDERSTANDING. ORIENTED TO HER PHONE AND CALL LIGHT AND TO USE CALL LIGHT FOR HELP. SAFETY MEASURES IN PLACED. CALL LIGHT PLACED WITHIN REACH.
--- NOTE | 2019-11-05 01:40 | NUR ---
CONSULT: CONSULT CALLED FOR DR. HERNANDEZ I SPOKE WITH REGINE ELLIS REASON FOR CONSULT: PNA REQUESTING CONSULT: DR. MURRIETA POLYTECH[employer]IC REGISTRAR PHONE NUMBER: [phone]
--- NOTE | 2019-11-05 01:41 | NUR ---
CONSULT: CONSULT CALLED FOR DR. SOOD I SPOKE WITH REGINE ELLIS REASON FOR CONSULT: CAD REQUESTING CONSULT: DR. MURRIETA CURTAIN FE[employer]ER BLINDSTITCH PHONE NUMBER: [phone]
--- NOTE | 2019-11-05 01:43 | NUR ---
CONSULT: CONSULT CALLED FOR DR. PRO I SPOKE WITH REGINE ELLIS REASON FOR CONSULT: ANALILIA REQUESTING CONSULT DR. MURRIETA [employer] OFFICER PHONE NUMBER: [phone]
[2019-11-05 01:44] VITALS: BP_SYST 130
[2019-11-05] MEDS: PIPERACILLIN/TAZO 2.25G/DEX-IS 50 ML IV SCH ×3 (02:20→11:34)
--- NOTE | 2019-11-05 02:20 | NUR ---
ANNELIESE STANFORD ORDERED ZOSYN IV FOR 0000 DOSE SINCE IT WAS NOT GIVEN BY ER. PATIENT REFUSED ALSO BROWN INSERTION AT THIS TIME. WILL CONTINUE TO MONITOR.
[2019-11-05] MEDS ORDERED: PIPERACILLIN/TAZOBACTAM 2.25 GM VIAL IV ONE (02:28)
--- NOTE | 2019-11-05 04:13 | NUR ---
ROUNDS PATIENT ASLEEP, RESPIRATIONS EVEN AND UNLABORED. WILL CONTINUE TO MONITOR.
--- NOTE | 2019-11-05 06:07 | NUR ---
CONSULT CONSULT CALLED FOR DR. PIZANO I SPOKE WITH HIM HE SAID TO ADD IT TO HIS LIST
--- NOTE | 2019-11-05 06:35 | NUR ---
CLOSING NOTES PATIENT STILL SLEEPING, VITALS STABLE, NO SIGNS OF ANY PAIN AND DISCOMFORT NOTED. ALL NEEDS ATTENDED TO. SAFETY MEASURES MAINTAINED. CALL LIGHT PLACED WITHIN REACH.
[2019-11-05 07:29] LABS: BASOPHILS % (AUTO) 0.2 % (0.0-2.0); HEMATOCRIT 32.8 % (36-48); HEMOGLOBIN 10.6 g/dL (12.0-16.0); LYMPHOCYTES # (AUTO) 0.3 K/uL (1.0-5.5); LYMPHOCYTES % (AUTO) 10.6 % (20.5-51.5); MEAN CORPUSCULAR HEMOGLOBIN 27 pg (27-31); MEAN CORPUSCULAR HGB CONC 32 % (32-36); MEAN CORPUSCULAR VOLUME 82 fL (79.0-98.0); MONOCYTES # (AUTO) 0.1 K/uL (0.0-1.0); MONOCYTES % (AUTO) 4.4 % (1.7-9.3); NEUTROPHILS # (AUTO) 2.6 K/uL (1.8-7.7); NEUTROPHILS % (AUTO) 84.8 % (40.0-70.0); PLATELET COUNT (AUTO) 180 K/uL (130-430); RED BLOOD CELL COUNT(AUTO) 3.98 MIL/uL (4.2-6.2); RED CELL DISTRIBUTION WIDTH 14.3 % (9.0-15.0)
[2019-11-05 08:17] LABS: ALANINE AMINOTRANSFERASE 28 U/L (12-78); ALBUMIN 2.7 g/dL (3.4-4.8); ANION GAP 13 (5-15); ASPARTATE AMINOTRANSFERASE 27 U/L (10-37); CALCIUM 7.3 mg/dL (8.4-11.0); CHLORIDE 103 mmol/L (98-107); CREATININE 2.44 mg/dL (0.55-1.30); GLUCOSE 170 mg/dL (70-99); PHOSPHORUS 3.3 mg/dL (2.7-4.5); POTASSIUM 4.5 mmol/L (3.5-5.1); SODIUM SERUM 134 mmol/L (136-145); TOTAL BILIRUBIN 0.3 mg/dL (0.0-1.0); UREA NITROGEN, BLOOD 51 mg/dL (8-21)
[2019-11-05] MEDS: SODIUM BICARBONATE 650 MG TABLET PO SCH ×3 (08:26→22:00)
[2019-11-05] MEDS: PANTOPRAZOLE SODIUM 40 MG TAB PO SCH (08:26)
--- NOTE | 2019-11-05 08:26 | NUR ---
OPENING NOTES, PT IN BED, ASSISTED WITH BEDPAN, NO C/O PAIN, NO SOB, PT COUGHS BUT STATED UNABLE TO COUGH OUT ANYTHING. VITALS WNL. NO FEVER. WILL CONT TO MONITOR.
[2019-11-05 08:30] VITALS: BP_SYST 136
[2019-11-05 11:32] VITALS: BP_SYST 110
[2019-11-05] MEDS: NACL 0.9% 1,000 ML IV SCH (11:34)
--- NOTE | 2019-11-05 11:50 | NUR ---
PT ASSISTED BACK TO BED FROM CHAIR. PT VIAL WNL, NO FEVER. LATOSHA SERVED. WILL CONT TO MONITOR.
[2019-11-05] MEDS ORDERED: FLUCONAZOLE 100 MG TABLET (DIFLUCAN) PO ONE (12:30)
--- NOTE | 2019-11-05 12:39 | NUR ---
DR SOOD HERE AND SEEN PT.
[2019-11-05 13:09] LABS: INR 1.4 (0.8-1.2); PROTHROMBIN TIME 13.7 SECS (9.5-12.5)
--- NOTE | 2019-11-05 15:10 | NUR ---
PT ASSISTED WITH BEDPAN. PT DENIES PAIN. NO SOB. WILL CONT TO MONITOR.
--- NOTE | 2019-11-05 15:39 | NUR ---
PT ASSISTED BACK TO BED, PT IS A LITTLE SHORT OF BREATH. O2 SAT WAS WNL.
[2019-11-05 15:40] VITALS: BP_SYST 105
[2019-11-05] MEDS ORDERED: ALBUTEROL SULFATE 0.083% 2.5 MG/3 ML VIAL.NEB INH PRN (16:15)
[2019-11-05] MEDS: cefTRIAXone 1 GM in D5W 50 ML IV SCH (17:45)
[2019-11-05] MEDS: WARFARIN SODIUM 5 MG TABLET PO SCH (17:49)
--- NOTE | 2019-11-05 17:50 | NUR ---
DR LINTON HERE AND SEEN PT. PT SERVED DINNER AND GIVEN PT MED.
[2019-11-05] MEDS ORDERED: WARFARIN SODIUM 4 MG TABLET PO SCH (18:00)
--- NOTE | 2019-11-05 18:32 | NUR ---
CLOSING NOTES PT HAS BEEN STABLE THE WHOLE SHIFT. VITALS WNL, PT WAS NOTED TO HAVE SOME SOB WHEN TRANSFERRING FROM CHAIR TO BED AFTER USING THE BS COMMODE. DR LINTON WAS MADE AWARE. WILL ENDORSE TO NIGHT NURSE.
--- NOTE | 2019-11-05 19:50 | NUR ---
OPENING NOTES Received report from FRED Brewer. Patient resting in bed, AAOx4, breathing evenly and nonlabored on room air. Patient has an IV on the left forearm 20g, IVF running, patent and benign, no s/s of infection or infiltration noted at this time. Educated patient on plan of care, fall/safety/aspiration/isolation precautions, call light system, patient stated understanding with return demonstration. Bed is locked and at lowest position, will continue to monitor.
[2019-11-05 20:00] VITALS: BP_SYST 137
--- NOTE | 2019-11-05 20:15 | NUR ---
ROUNDS Patient resting in bed, awake, breathing evenly and nonlabored on room air. No s/s of distress at this time, no other needs at this time. Fall/safety/aspiration/isolation precautions, will continue to monitor.
[2019-11-05] MEDS: AZITHROMYCIN 500 MG in NS 250 ML IV SCH (22:00)
--- NOTE | 2019-11-05 22:05 | NUR ---
MEDICATIONS/ROUNDS Patient resting in bed, awake, breathing evenly and nonlabored on room air. Educated patient on due medications, patient stated understanding. Administered medications, patient tolerated them well. No s/s of distress at this time, no other needs at this time. Fall/safety/aspiration/isolation precautions, will continue to monitor.
[2019-11-06 00:30] VITALS: BP_SYST 120
[2019-11-06] MEDS: NACL 0.9% 1,000 ML IV SCH ×3 (00:30→21:50)
--- NOTE | 2019-11-06 00:35 | NUR ---
ROUNDS Patient resting in bed, awake, breathing evenly and nonlabored on room air. Vital signs stable. IVF replaced, patient tolerating it well. No s/s of distress at this time, no other needs at this time. Fall/safety/aspiration/isolation precautions, will continue to monitor.
--- NOTE | 2019-11-06 02:00 | NUR ---
ROUNDS Patient resting in bed, eyes closed, breathing evenly and nonlabored on room air. No s/s of distress at this time, no other needs at this time. Fall/safety/aspiration/isolation precautions, will continue to monitor.
--- NOTE | 2019-11-06 04:00 | NUR ---
ROUNDS Patient resting in bed, awake, breathing evenly and nonlabored on room air. Patient's IV was beeping, IVF restarted, patient is tolerating it well, no s/s of infection or infiltration at this time. No other needs at this time. Fall/safety/aspiration/isolation precautions, will continue to monitor.
--- NOTE | 2019-11-06 06:10 | NUR ---
SPOKE WITH DR. RODRIGUEZ, NOTIFIED OF POSITIVE COVID RESULT, HE SAID HE ALREADY KNOWS AND NO NEW ORDERS.
--- NOTE | 2019-11-06 06:55 | NUR ---
CLOSING NOTES Patient resting in bed, awake, breathing evenly and nonlabored on room air. Needs met throughout the shift. No s/s of distress at this time, no other needs at this time. Fall/safety/aspiration/isolation precautions, will endorse care to morning shift RN.
--- NOTE | 2019-11-06 06:56 | NUR ---
Nutrition Update Jose Miguel Scale 17 noted. Pt admitted for Acute Respiratory Failure, Pneumonia Diet: Mechanical soft BMI: 44.7 kg/m2 RD to follow per nutrition care standards.
[2019-11-06 07:21] LABS: BASOPHILS % (AUTO) 0.1 % (0.0-2.0); HEMATOCRIT 32.1 % (36-48); HEMOGLOBIN 10.7 g/dL (12.0-16.0); LYMPHOCYTES # (AUTO) 0.6 K/uL (1.0-5.5); LYMPHOCYTES % (AUTO) 6.4 % (20.5-51.5); MEAN CORPUSCULAR HEMOGLOBIN 27 pg (27-31); MEAN CORPUSCULAR HGB CONC 33 % (32-36); MEAN CORPUSCULAR VOLUME 81 fL (79.0-98.0); MONOCYTES # (AUTO) 0.5 K/uL (0.0-1.0); MONOCYTES % (AUTO) 5.8 % (1.7-9.3); NEUTROPHILS # (AUTO) 8.1 K/uL (1.8-7.7); NEUTROPHILS % (AUTO) 87.7 % (40.0-70.0); PLATELET COUNT (AUTO) 201 K/uL (130-430); RED BLOOD CELL COUNT(AUTO) 3.95 MIL/uL (4.2-6.2); RED CELL DISTRIBUTION WIDTH 14.2 % (9.0-15.0); WHITE BLOOD COUNT (AUTO) 9.2 K/uL (4.8-10.8)
[2019-11-06 07:29] LABS: INR 1.5 (0.8-1.2); PROTHROMBIN TIME 15.2 SECS (9.5-12.5)
[2019-11-06 07:43] LABS: ALANINE AMINOTRANSFERASE 20 U/L (12-78); ALBUMIN 2.5 g/dL (3.4-4.8); ANION GAP 8 (5-15); ASPARTATE AMINOTRANSFERASE 25 U/L (10-37); CALCIUM 7.3 mg/dL (8.4-11.0); CHLORIDE 108 mmol/L (98-107); CREATININE 2.44 mg/dL (0.55-1.30); GLUCOSE 145 mg/dL (70-99); POTASSIUM 4.3 mmol/L (3.5-5.1); SODIUM SERUM 136 mmol/L (136-145); TOTAL BILIRUBIN 0.2 mg/dL (0.0-1.0); UREA NITROGEN, BLOOD 53 mg/dL (8-21)
[2019-11-06 08:00] VITALS: BP_SYST 129
--- NOTE | 2019-11-06 08:00 | NUR ---
Note Pt sitting up in bed to eat her breakfast. No SOB/resp distress or pain/discomfort noted at this time. Tele unit attached and intact at this time. Pt independently gets OOB to use BSC. No needs noted at this time. Call light within reach.
[2019-11-06] MEDS: SODIUM BICARBONATE 650 MG TABLET PO SCH ×3 (08:55→21:50)
[2019-11-06] MEDS: PANTOPRAZOLE SODIUM 40 MG TAB PO SCH (08:55)
[2019-11-06] MEDS: FLUCONAZOLE 100 MG TABLET (DIFLUCAN) PO SCH (08:55)
--- NOTE | 2019-11-06 10:25 | NUR ---
Note Pt gets OOB to BSC and now sitting on side of bed to exercise her legs and get pressure of her back/coccyx. Pt denies any needs at this time. Call light within reach.
[2019-11-06 11:56] VITALS: BP_SYST 124
[2019-11-06] MEDS ORDERED: *LOVENOX0.75MG/KG Q12H/PHARMACY XX ONE (12:15)
[2019-11-06] MEDS ORDERED: CHOLECALCIFEROL (VITAMIN D3) 2,000 UNIT TABLET PO ONE (12:45)
[2019-11-06] MEDS ORDERED: ASCORBIC ACID 500 MG TABLET PO ONE (12:45)
--- NOTE | 2019-11-06 13:00 | NUR ---
Dietitian Recommendations *Recommend: Pureed CCHO diet. ONS Glucerna TID comes standard w/ diet and will provide 660 kcal and 30gm protein daily. *Consider appetite stimulant and VIT C, VIT D and zinc supplements. Please see Nutritional Assessment for details. YAMILA, RD
--- NOTE | 2019-11-06 14:20 | NUR ---
Note Pt received her belongings (magazines) from her daughter - brought in by RN. Pt sitting up in bed reading magazines and has call light within reach. No SOB/resp distress or pain/discomfort noted at this time. Pt stable. Dr Yin, Dr Degroot and Dr Cordoba were on the floor, to assess pt during this shift. No needs noted at this time. Call light within reach.
[2019-11-06 16:00] VITALS: BP_SYST 102
[2019-11-06] MEDS: cefTRIAXone 1 GM in D5W 50 ML IV SCH (17:07)
[2019-11-06] MEDS: WARFARIN SODIUM 5 MG TABLET PO SCH (17:09)
[2019-11-06] MEDS ORDERED: ENOXAPARIN SODIUM 60 MG/0.6 ML SYRINGE SUBCUT ONE (18:00)
--- NOTE | 2019-11-06 18:10 | NUR ---
Note Pt sitting up in bed eating her dinner. No SOB/resp distress or pain/discomfort noted at this time. tami unit attached and intact at this time. IV in left forearm intact and patent infusing IVF's well. Pt used BSC all shift for void and bowel movement. Pt was checked on q1' and PRN all shift for needs and care. Pt maintained with safety and isolation precautions all shift. No needs noted at this time. Pt's bed has been i low position all shift. Call light within reach.
[2019-11-06 20:30] VITALS: BP_SYST 141
[2019-11-06] MEDS: AZITHROMYCIN 500 MG in NS 250 ML IV SCH (22:00)
--- NOTE | 2019-11-06 22:00 | NUR ---
MEDICATIONS/ROUNDS Patient resting in bed, awake, breathing evenly and nonlabored on room air. Educated patient on due medications, patient stated understanding. Administered medications, patient tolerated them well. Hygiene care done, patient asked for some snacks which was provided. No s/s of distress at this time, no other needs at this time. Fall/safety/aspiration/isolation precautions, will continue to monitor.
[2019-11-07 00:25] VITALS: BP_SYST 119
--- NOTE | 2019-11-07 00:25 | NUR ---
ROUNDS Patient resting in bed, awake, breathing evenly and nonlabored on room air. Vital signs stable. No s/s of distress at this time, no other needs at this time. Fall/safety/aspiration/isolation precautions, will continue to monitor.
--- NOTE | 2019-11-07 02:05 | NUR ---
ROUNDS Patient resting in bed, eyes closed, breathing evenly and nonlabored on room air. No s/s of distress at this time, no other needs at this time. Fall/safety/aspiration/isolation precautions, will continue to monitor the patient.
--- NOTE | 2019-11-07 04:15 | NUR ---
MEDICATIONS/ROUNDS Patient resting in bed, awake, breathing evenly and nonlabored on room air. Patient complained of mild pain, educated patient on pain medication, nonpharmacological interventions, patient stated understanding. Administered pain medication, patient tolerated it well. No other needs at this time. Fall/safety/aspiration/isolation precautions, will continue to monitor.
[2019-11-07] MEDS: NACL 0.9% 1,000 ML IV SCH ×2 (06:20→16:03)
--- NOTE | 2019-11-07 06:20 | NUR ---
CLOSING NOTES Patient resting in bed, awake, breathing evenly and nonlabored on room air. IVF bag replaced, patient tolerating it well. Needs met throughout the shift. No s/s of distress at this time, no other needs at this time. Fall/safety/aspiration/isolation precautions, will endorse care to morning shift RN.
[2019-11-07 07:33] LABS: BASOPHILS % (AUTO) 0.2 % (0.0-2.0); EOSINOPHILS % (AUTO) 0.1 % (0.0-4.0); HEMATOCRIT 30.4 % (36-48); LYMPHOCYTES # (AUTO) 0.6 K/uL (1.0-5.5); MEAN CORPUSCULAR HEMOGLOBIN 27 pg (27-31); MEAN CORPUSCULAR HGB CONC 33 % (32-36); MEAN CORPUSCULAR VOLUME 82 fL (79.0-98.0); MONOCYTES # (AUTO) 0.6 K/uL (0.0-1.0); MONOCYTES % (AUTO) 7.8 % (1.7-9.3); NEUTROPHILS # (AUTO) 6.7 K/uL (1.8-7.7); NEUTROPHILS % (AUTO) 83.9 % (40.0-70.0); PLATELET COUNT (AUTO) 215 K/uL (130-430); RED BLOOD CELL COUNT(AUTO) 3.72 MIL/uL (4.2-6.2); RED CELL DISTRIBUTION WIDTH 14.6 % (9.0-15.0)
[2019-11-07 07:38] LABS: INR 2.6 (0.8-1.2); PROTHROMBIN TIME 25.7 SECS (9.5-12.5)
[2019-11-07 07:51] LABS: ALANINE AMINOTRANSFERASE 21 U/L (12-78); ALBUMIN 2.5 g/dL (3.4-4.8); ANION GAP 9 (5-15); ASPARTATE AMINOTRANSFERASE 27 U/L (10-37); CALCIUM 7.1 mg/dL (8.4-11.0); CHLORIDE 111 mmol/L (98-107); CREATININE 2.03 mg/dL (0.55-1.30); GLUCOSE 99 mg/dL (70-99); POTASSIUM 3.9 mmol/L (3.5-5.1); SODIUM SERUM 141 mmol/L (136-145); TOTAL BILIRUBIN 0.2 mg/dL (0.0-1.0); UREA NITROGEN, BLOOD 43 mg/dL (8-21)
[2019-11-07 08:00] VITALS: BP_SYST 126
--- NOTE | 2019-11-07 08:00 | NUR ---
Note Pt sitting up in bed eating her breakfast. No SOB/resp distress or pain/discomfort noted at this time. IV in left forearm intact and patent infusing IVF's well. No needs noted at this time. Call light within reach. Dr Cordoba to be paged for pt's INR=2.6 (re: Lovenox SQ/Coumadin PO).
--- NOTE | 2019-11-07 08:08 | NUR ---
PAGED PAGED URVASHI ALVES AT [phone] SPOKE WITH
[2019-11-07] MEDS ORDERED: ENOXAPARIN SODIUM 60 MG/0.6 ML SYRINGE SUBCUT SCH (09:00)
[2019-11-07] MEDS: SODIUM BICARBONATE 650 MG TABLET PO SCH ×3 (09:23→20:38)
[2019-11-07] MEDS: PANTOPRAZOLE SODIUM 40 MG TAB PO SCH (09:23)
[2019-11-07] MEDS: FLUCONAZOLE 100 MG TABLET (DIFLUCAN) PO SCH (09:23)
[2019-11-07] MEDS: CHOLECALCIFEROL (VITAMIN D3) 2,000 UNIT TABLET PO SCH (09:24)
[2019-11-07] MEDS: ASCORBIC ACID 500 MG TABLET PO SCH (09:24)
--- NOTE | 2019-11-07 10:00 | NUR ---
Note Dr Cordoba called back and was notified about high INR of 2.6. Orders received.
--- NOTE | 2019-11-07 11:55 | NUR ---
Note Pt resting in bed, denies any needs at this time. Call light within reach.
[2019-11-07 12:00] VITALS: BP_SYST 131
--- NOTE | 2019-11-07 13:10 | NUR ---
Note Pt resting in bed. No needs noted at this time. Call light within reach.
[2019-11-07 16:00] VITALS: BP_SYST 145
[2019-11-07] MEDS: cefTRIAXone 1 GM in D5W 50 ML IV SCH (17:55)
[2019-11-07] MEDS ORDERED: WARFARIN SODIUM 2 MG TABLET PO SCH (18:00)
--- NOTE | 2019-11-07 18:30 | NUR ---
Note Pt has been getting in and OOB to BSC frequently all shift independently. Dr Ba (Pul) came to see pt and assessment was done. No SOB/resp distress or pain/discomfort noted at this time. IV in left forearm intact and patent infusing IVF's. Tele unit attached and intact. Pt was checked on q1' and PRN all shift for needs and care. Pt was maintained with safety and isolation precautions all shift. Dr Cordoba was on the floor and assessment was completed, orders written and carried out. No needs noted at this time. Call light within reach. Pt sitting up in bed eating her dinner at this time at this time.
--- NOTE | 2019-11-07 20:30 | NUR ---
Opening notes Pt AAOx4, VSS, afebrile, 96% on room air, no sob or distress noted. IVF infusing L. FA 20G no s/s infiltration. Call light/items within reach. Bed low, locked, siderails up. Droplet isolation maintained. To monitor.
[2019-11-07 20:50] VITALS: BP_SYST 140
[2019-11-07] MEDS: AZITHROMYCIN 500 MG in NS 250 ML IV SCH (23:42)
--- NOTE | 2019-11-07 23:42 | NUR ---
Rounds/IV antibiotic Pt asleep, easily awakens, no s/s distress. IV Zithromax administered at ordered rate L. FA 20G clear and patent. Call light within reach. Safety/isolation maintained. To monitor.
[2019-11-08 00:20] VITALS: BP_SYST 125
--- NOTE | 2019-11-08 02:03 | NUR ---
Rounds Pt asleep, no s/s distress or discomfort noted. Call light within reach. To monitor.
[2019-11-08] MEDS: NACL 0.9% 1,000 ML IV SCH ×2 (03:37→14:43)
--- NOTE | 2019-11-08 04:02 | NUR ---
Rounds Pt alert, awake, sitting in bedside chair, no s/s distress or discomfort noted. Bed linens changed. New IV bag administered at ordered rate L. FA 20 clear and patent. Pt back to bed, call light within reach. Safety maintained. To monitor.
--- NOTE | 2019-11-08 05:53 | NUR ---
Closing notes Pt asleep, no s/s distress or discomfort noted. IVF infusing at ordered rate. Call light within reach. Bed maintained low, locked, siderails up x2. To endorse to AM nurse.
--- NOTE | 2019-11-08 06:08 | NUR ---
Chest Xray at bedside.
--- NOTE | 2019-11-08 07:16 | NUR ---
Opening Note Received bedside SBAR from night RN, patient in bed, respirations even, bed in low and locked position, call light within reach
[2019-11-08 08:00] VITALS: BP_SYST 127
--- NOTE | 2019-11-08 08:30 | NUR ---
nurse notes provided breakfast, patient in bed, respirations even, non labored, obtained vs, administered morning medications, patient tolerated well, no signs of distress
--- NOTE | 2019-11-08 08:40 | NUR ---
MD ROUNDS Dr. Roche bedside examining patient
[2019-11-08 08:41] LABS: BASOPHILS % (AUTO) 0.1 % (0.0-2.0); EOSINOPHILS % (AUTO) 0.7 % (0.0-4.0); HEMATOCRIT 28.9 % (36-48); HEMOGLOBIN 9.5 g/dL (12.0-16.0); LYMPHOCYTES # (AUTO) 0.7 K/uL (1.0-5.5); LYMPHOCYTES % (AUTO) 11.9 % (20.5-51.5); MEAN CORPUSCULAR HEMOGLOBIN 27 pg (27-31); MEAN CORPUSCULAR HGB CONC 33 % (32-36); MEAN CORPUSCULAR VOLUME 82 fL (79.0-98.0); MONOCYTES # (AUTO) 0.8 K/uL (0.0-1.0); MONOCYTES % (AUTO) 12.4 % (1.7-9.3); NEUTROPHILS # (AUTO) 4.6 K/uL (1.8-7.7); NEUTROPHILS % (AUTO) 74.9 % (40.0-70.0); PLATELET COUNT (AUTO) 206 K/uL (130-430); RED BLOOD CELL COUNT(AUTO) 3.53 MIL/uL (4.2-6.2); RED CELL DISTRIBUTION WIDTH 14.2 % (9.0-15.0); WHITE BLOOD COUNT (AUTO) 6.1 K/uL (4.8-10.8)
[2019-11-08 08:47] LABS: ALANINE AMINOTRANSFERASE 23 U/L (12-78); ALBUMIN 2.4 g/dL (3.4-4.8); ANION GAP 6 (5-15); ASPARTATE AMINOTRANSFERASE 27 U/L (10-37); CHLORIDE 109 mmol/L (98-107); CREATININE 1.77 mg/dL (0.55-1.30); GLUCOSE 98 mg/dL (70-99); POTASSIUM 3.8 mmol/L (3.5-5.1); SODIUM SERUM 136 mmol/L (136-145); TOTAL BILIRUBIN 0.3 mg/dL (0.0-1.0); UREA NITROGEN, BLOOD 25 mg/dL (8-21)
[2019-11-08 09:05] LABS: CALCIUM 6.9 mg/dL (8.4-11.0)
--- NOTE | 2019-11-08 09:05 | NUR ---
critical lab received critical lab Calcium 6.9, paged Dr. Degroot
[2019-11-08 09:06] LABS: INR 2.8 (0.8-1.2)
[2019-11-08] MEDS: FLUCONAZOLE 100 MG TABLET (DIFLUCAN) PO SCH (09:06)
[2019-11-08] MEDS: PANTOPRAZOLE SODIUM 40 MG TAB PO SCH (09:07)
[2019-11-08] MEDS: ASCORBIC ACID 500 MG TABLET PO SCH (09:07)
[2019-11-08] MEDS: CHOLECALCIFEROL (VITAMIN D3) 2,000 UNIT TABLET PO SCH (09:07)
[2019-11-08] MEDS: SODIUM BICARBONATE 650 MG TABLET PO SCH ×3 (09:07→21:03)
--- NOTE | 2019-11-08 09:07 | NUR ---
PAGED PAGED COLT VALENCIA AT [phone] SPOKE WITH CHRISTIANO.
[2019-11-08 09:13] LABS: C-REACTIVE PROTEIN QUANT 18.7 mg/dL (0-0.5)
[2019-11-08 09:14] LABS: PROTHROMBIN TIME 27.4 SECS (9.5-12.5)
--- NOTE | 2019-11-08 10:30 | NUR ---
nurse note Patient in bed, respirations even non labored, bed in low and locked position call light within reach
[2019-11-08 12:00] VITALS: BP_SYST 124
--- NOTE | 2019-11-08 12:00 | NUR ---
nurse note provided patient with lunch, administered medication, obtained vs, patient in bed, respirations even non labored, bed in low and locked position, call light within reach,
[2019-11-08] MEDS: CALCIUM CARBONATE 500 MG/ TAB.CHEW PO SCH ×3 (13:36→21:03)
--- NOTE | 2019-11-08 14:44 | NUR ---
nurse note administered medication, changed iv fluids, patient in bed, respirations even non labored, bed in low and locked position, call light within reach
[2019-11-08 16:00] VITALS: BP_SYST 132
--- NOTE | 2019-11-08 16:00 | NUR ---
nurse note administered medications, provided dinner, patient in bed, respirations even, non labored, bed in low and locked position call light within reach,
[2019-11-08] MEDS ORDERED: WARFARIN SODIUM 1 MG TABLET PO SCH (18:00)
[2019-11-08] MEDS: cefTRIAXone 1 GM in D5W 50 ML IV SCH (18:29)
--- NOTE | 2019-11-08 19:20 | NUR ---
closing note provided bedside SBAR to night RN, patient in bed, respirations even non labored, bed in low and locked position, call light within reach, endorsed care to nightRN
--- NOTE | 2019-11-08 21:03 | NUR ---
MED PASS PATIENT DUE MEDICATIONS GIVEN. VITAL SIGNS STABLE. ASSISTED WITH BEDSIDE COMMODE USE. NO C/O PAIN AT THIS TIME.
[2019-11-08 21:22] VITALS: BP_SYST 133
[2019-11-08 23:58] VITALS: BP_SYST 142
[2019-11-08] MEDS: AZITHROMYCIN 500 MG in NS 250 ML IV SCH (23:58)
--- NOTE | 2019-11-08 23:58 | NUR ---
IV LINE/ATB NEW IV LINE INSERTED TO RT HAND WITH GOOD BLOOD RETURN. DUE ANTIBIOTIC INFUSED. OLD IV LINE REMOVED. PRESSURE DRESSING APPLIED. VITAL SIGNS STABLE.
[2019-11-09] MEDS: NACL 0.9% 1,000 ML IV SCH (02:29)
--- NOTE | 2019-11-09 03:00 | NUR ---
ROUNDS PATIENT RESTING IN BED. BREATHING UNLABORED. IVF INFUSING.
--- NOTE | 2019-11-09 05:00 | NUR ---
ROUNDS NO DISTRESS NOTED. DENIES PAIN. IVF INFUSING.
--- NOTE | 2019-11-09 06:28 | NUR ---
CLOSING NOTES PATIENT NEEDS ATTENDED. IVF INFUSING WITH IV LINE INTACT AND PATENT. BED IN LOWEST LOCKED POSITION. CALL LIGHT WITH IN REACH.
[2019-11-09 07:31] LABS: BASOPHILS % (AUTO) 0.3 % (0.0-2.0); EOSINOPHILS # (AUTO) 0.2 K/uL (0.0-0.4); HEMATOCRIT 27.8 % (36-48); HEMOGLOBIN 9.3 g/dL (12.0-16.0); LYMPHOCYTES # (AUTO) 0.9 K/uL (1.0-5.5); LYMPHOCYTES % (AUTO) 13.7 % (20.5-51.5); MEAN CORPUSCULAR HEMOGLOBIN 27 pg (27-31); MEAN CORPUSCULAR HGB CONC 34 % (32-36); MEAN CORPUSCULAR VOLUME 82 fL (79.0-98.0); MONOCYTES # (AUTO) 0.6 K/uL (0.0-1.0); MONOCYTES % (AUTO) 9.2 % (1.7-9.3); NEUTROPHILS # (AUTO) 4.6 K/uL (1.8-7.7); NEUTROPHILS % (AUTO) 73.8 % (40.0-70.0); PLATELET COUNT (AUTO) 212 K/uL (130-430); RED BLOOD CELL COUNT(AUTO) 3.41 MIL/uL (4.2-6.2); RED CELL DISTRIBUTION WIDTH 14.4 % (9.0-15.0); WHITE BLOOD COUNT (AUTO) 6.3 K/uL (4.8-10.8)
[2019-11-09 08:07] LABS: ALANINE AMINOTRANSFERASE 24 U/L (12-78); ALBUMIN 2.4 g/dL (3.4-4.8); ANION GAP 9 (5-15); ASPARTATE AMINOTRANSFERASE 26 U/L (10-37); CHLORIDE 108 mmol/L (98-107); CREATININE 1.61 mg/dL (0.55-1.30); GLUCOSE 87 mg/dL (70-99); PHOSPHORUS 2.4 mg/dL (2.7-4.5); POTASSIUM 3.7 mmol/L (3.5-5.1); SODIUM SERUM 137 mmol/L (136-145); TOTAL BILIRUBIN 0.4 mg/dL (0.0-1.0); UREA NITROGEN, BLOOD 19 mg/dL (8-21)
[2019-11-09 08:13] LABS: C-REACTIVE PROTEIN QUANT 21.5 mg/dL (0-0.5)
[2019-11-09] MEDS: CALCIUM CARBONATE 500 MG/ TAB.CHEW PO SCH ×2 (09:00→13:00)
[2019-11-09] MEDS: CHOLECALCIFEROL (VITAMIN D3) 2,000 UNIT TABLET PO SCH (09:30)
[2019-11-09] MEDS: FLUCONAZOLE 100 MG TABLET (DIFLUCAN) PO SCH (09:30)
[2019-11-09] MEDS: SODIUM BICARBONATE 650 MG TABLET PO SCH (09:30)
[2019-11-09] MEDS: PANTOPRAZOLE SODIUM 40 MG TAB PO SCH (09:30)
[2019-11-09] MEDS: ASCORBIC ACID 500 MG TABLET PO SCH (09:30)
--- NOTE | 2019-11-09 11:32 | NUR ---
Nutrition F/U Admitting Diagnosis Acute Respiratory Failure. Pneumonia Reviewed Pertinent Medical/Surgical Hx Medical Record Medical History Comment: Pt found w/: Acute Respiratory Failure, CAP, H/O DVT on coumadin, Morbid obesity, HTN, CAD, Gout, Hyperlipidemia, ANALILIA/ATN, Acute Metabolic Acidosis, Anemia per MD notes. PMH: HTN, Gout, CAD, Hyperlipidemia. Per Cardiology Consult notes: CKD Stage 4. Per Dr. Izaguirre: +Hx of DM. 11/03 CT A&P: Bilateral lower lobe hazy pulmonary infiltrates. Subjective Information Pt remains on isolation precaution for COVID-19. Per MD note, pt feels much better and that her renal function has improved. RD tried to reach pt's RN via phone -- nursing station stated RN currently inside isolation room. Per intake record, pt continues to have poor PO intake with average of 43% x last 7 meals. Pt is not yet meeting nutritional needs. Noted pt's current diet order as Mechanical Soft, Standard CCHO Diet. Recommend continue current diet order w/ Glucerna TID included. Current Diet Order/Nutrition Support Mechanical Soft, Standard Carb-60 Diet x 3 days Pertinent Medications coumadin, protonix, zinc sulfate, Tums, VitC, Sodium Bicarbonate Pertinent Labs 11/08 BG 87 WNL, BUN 19 WNL, CRE 1.61H (trending down), COVID-19 PCR Positive 11/03 Height (Feet) 5 feet Height (Inches) 0.00 inches Recent Weight Change No - per EMR Skin Integrity Comment: Jose Miguel scale: 21. Per EMR, no pressure injury, non-pitting Bilateral generalized edema. Current % PO Poor (25-49%); 43% x last 7 meals per EMR Estimated Energy Expenditure (kcals/day) 2581-2282 kcal/day (30-35 kcal/kg Adj IBW for acute state) Estimated Protein Required (g/day) 60-90 gm/day (1-1.5gm/kg Adj IBW for Renal Dz predialysis and acute state) Estimated Fluid Required (l/day) per MD (Hx of CKD Stage 4) Problem/Etiology/Signs/Symptoms Altered nutrition-related labs r/t endocrine and renal dysfunction AEB elevated BG, BUN, CRE lab values and Hx of DMa dn CKD.*improving Increased nutrient needs r/t metabolic demands AEB estimated calories and protein for acute state. *ongoing Malnutrition r/t morbid obesity AEB BMI 44.7 kg/m2 *ongoing Expected Outcomes/Goals Monitor appetite and PO intake w/ goal of pt meeting at least 75% of estimated nutritional needs, labs trending WNL, normal GI function, skin integrity/wt maintenance. Dietitian Recommendations *Recommend continue Mechanical Soft, Standard Carb-60 diet. ONS Glucerna TID comes standard w/ diet and will provide 660 kcal and 30gm protein daily. *Consider appetite stimulant if poor PO intake persists. *Consider Vitamin D supplement Follow Up High Risk: F/U in 2-3days
--- NOTE | 2019-11-09 11:42 | NUR ---
Dietitian Recommendations *Recommend continue Mechanical Soft, Standard Carb-60 diet. ONS Glucerna TID comes standard w/ diet and will provide 660 kcal and 30gm protein daily. *Consider appetite stimulant if poor PO intake persists. *Consider Vitamin D supplement Please see Nutrition F/U for details. JUICE,RD
[2019-11-09 12:00] VITALS: BP_SYST 150
--- NOTE | 2019-11-09 12:05 | NUR ---
DC Planning: discussed with dr. Cordoba: the md ordered pt to go home today if cleared by ID and to arrange HH for disease management/safety eval. I VIVIAN updated the POC and faxed the order to Jessica/Herbert fax # [phone] , tel # [phone]. CM will f/u the HH set up status. Addendum: 11/09/19 at 1612 by Kvng Hayes RN Called back from Donna/Herbert #[phone]: the home health has been arranged with [facility]. The visiting nurse will call pt for the visiting appointment. -- Kassy IBARRA made aware.
[2019-11-09 12:15] LABS: INR 2.9 (0.8-1.2); PROTHROMBIN TIME 28.9 SECS (9.5-12.5)
[2019-11-09] MEDS ORDERED: WARF4TAB2 PO (12:49)
[2019-11-09 15:58] VITALS: BP_SYST 152
--- NOTE | 2019-11-09 18:15 | NUR ---
closing notes pt was discharged . doroteo was outside waiting . ivl and id band was removed. discuseed with patient meds to be d/c and medication reconcilation. dr moreno also wrote prescription and discussed with patient. spoke with son on the phone and discussed home health to follow up patient at home. was wheeled outside via wheelchair.
--- NOTE | 2019-11-09 19:15 | NUR ---
P.T. NOTES PER RN, Pt AMBULATORY IN ROOM, FOR D/C HOME TODAY; HAS ALREADY BEEN GETTING UP INSIDE HER ROOM; MAY BENEFIT W/ HOME SAFETY EVAL. 11/09/19 Hgb=9.3; 11/04/19 (+)COVID19; (-)INFL AB; (+) E COLI
== END 2019-11-09 18:15 | disposition home health service (06) | DRG 871 ==
LOC: SED 16:37 → STU 19:14 → EEVIPCON 19:14 → STU 11-05 00:50
PROVIDERS: ADMIT Internal Medicine; ATTEND Internal Medicine
DX: A41.9 Sepsis, unspecified organism (principal); J96.00 Acute respiratory failure, unspecified whether with hypoxia or hypercapnia; N17.0 Acute kidney failure with tubular necrosis; U07.1 COVID-19; J12.89 Other viral pneumonia; E87.2 Acidosis; B37.49 Other urogenital candidiasis; E87.0 Hyperosmolality and hypernatremia; J44.0 Chronic obstructive pulmonary disease with (acute) lower respiratory infection; J44.1 Chronic obstructive pulmonary disease with (acute) exacerbation; I13.0 Hypertensive heart and chronic kidney disease with heart failure and stage 1 through stage 4 chronic kidney disease, or unspecified chronic kidney disease; Z68.41 Body mass index [BMI] 40.0-44.9, adult; N18.4 Chronic kidney disease, stage 4 (severe); E44.0 Moderate protein-calorie malnutrition; I50.9 Heart failure, unspecified; E66.01 Morbid (severe) obesity due to excess calories; D64.9 Anemia, unspecified; E11.22 Type 2 diabetes mellitus with diabetic chronic kidney disease; E78.00 Pure hypercholesterolemia, unspecified; M10.9 Gout, unspecified; E78.5 Hyperlipidemia, unspecified; I25.10 Atherosclerotic heart disease of native coronary artery without angina pectoris; N20.0 Calculus of kidney; Z79.01 Long term (current) use of anticoagulants; Z86.711 Personal history of pulmonary embolism; Z86.718 Personal history of other venous thrombosis and embolism; Z90.49 Acquired absence of other specified parts of digestive tract; Z79.899 Other long term (current) drug therapy
CPT/HCPCS: 36415; 71045; 80053; 81000-TC; 82150-TC; 82550-TC; 82728; 82803-TC; 83605; 83690-TC; 83735-TC; 83880; 84100-TC; 84439; 84443-TC; 84479; 84484; 85025; 85379; 85610-TC; 85651-TC; 85730-TC; 86140; 86710; 87040-TC; 87081; 87086; 87186-TC; 93005; 94640; 96365; 96375; 99291; G0378; J0456; J0696; J1650; J2405; J2543; J2930; J7030; J7050; J7060; J7613; U0003-CS

== ENCOUNTER 2020-01-27 12:28 | Emergency (ER) | payer OTHER, SELFPAY ==
[~2020-01-27] VITALS: Ht 157.5 cm; Wt 102.1 kg
[~2020-01-27 12:28] MED LIST changes: -DOXY100C2 PO; -FURO-149 PO; +NITR-85 PO; -WARF4TAB2 PO
[2020-01-27 12:30] VITALS: BP_SYST 148
[2020-01-27 13:23] LABS: BASOPHILS % (AUTO) 0.7 % (0.0-2.0); EOSINOPHILS # (AUTO) 0.2 K/uL (0.0-0.4); EOSINOPHILS % (AUTO) 3.4 % (0.0-4.0); HEMATOCRIT 32.3 % (36-48); HEMOGLOBIN 10.5 g/dL (12.0-16.0); LYMPHOCYTES # (AUTO) 1.5 K/uL (1.0-5.5); LYMPHOCYTES % (AUTO) 21.3 % (20.5-51.5); MEAN CORPUSCULAR HEMOGLOBIN 27 pg (27-31); MEAN CORPUSCULAR HGB CONC 33 % (32-36); MEAN CORPUSCULAR VOLUME 84 fL (79.0-98.0); MONOCYTES # (AUTO) 0.5 K/uL (0.0-1.0); MONOCYTES % (AUTO) 6.7 % (1.7-9.3); NEUTROPHILS # (AUTO) 4.7 K/uL (1.8-7.7); NEUTROPHILS % (AUTO) 67.9 % (40.0-70.0); PLATELET COUNT (AUTO) 271 K/uL (130-430); RED BLOOD CELL COUNT(AUTO) 3.85 MIL/uL (4.2-6.2); RED CELL DISTRIBUTION WIDTH 14.8 % (9.0-15.0); WHITE BLOOD COUNT (AUTO) 6.8 K/uL (4.8-10.8)
[2020-01-27 13:35] LABS: BILIRUBIN,URINE NEGATIVE (NEGATIVE); BLOOD, URINE 2+ (NEGATIVE); CLARITY/URINE CLEAR (CLEAR); COLOR,URINE YELLOW (YELLOW); GLUCOSE,URINE NEGATIVE (NEGATIVE); KETONES,URINE NEGATIVE (NEGATIVE); LEUKOCYTE ESTERASE ,URINE 2+ (NEGATIVE); NITRITE, URINE NEGATIVE (NEGATIVE); PROTEIN URINE TRACE (NEGATIVE); UROBILINOGEN,URINE 0.2 (0.2-1.0)
[2020-01-27 13:37] LABS: ANION GAP 10 (5-15); CALCIUM 9.2 mg/dL (8.4-11.0); CHLORIDE 104 mmol/L (98-107); CREATININE 1.54 mg/dL (0.55-1.30); GLUCOSE 93 mg/dL (70-99); POTASSIUM 3.9 mmol/L (3.5-5.1); SODIUM SERUM 138 mmol/L (136-145); UREA NITROGEN, BLOOD 24 mg/dL (8-21)
[2020-01-27 13:43] LABS: ALANINE AMINOTRANSFERASE 13 U/L (12-78); ALBUMIN 3.9 g/dL (3.4-4.8); ASPARTATE AMINOTRANSFERASE 19 U/L (10-37); TOTAL BILIRUBIN 0.8 mg/dL (0.0-1.0)
[2020-01-27 13:48] LABS: RBC,URINE 20-50 /HPF (0-3)
[2020-01-27 13:49] LABS: BACTERIA,URINE FEW /HPF (None Seen); YEAST,URINE None Seen /HPF (None Seen)
[2020-01-27 14:31] VITALS: BP_SYST 148
== END 2020-01-27 14:30 | disposition home or self-care (01) ==
LOC: SED 12:28
DX: L03.116 Cellulitis of left lower limb (principal); L03.115 Cellulitis of right lower limb; I10 Essential (primary) hypertension; E78.00 Pure hypercholesterolemia, unspecified; Z79.899 Other long term (current) drug therapy
CPT/HCPCS: 36415; 80053; 81000-TC; 85025; 87040-TC; 87086; 93970; 99284

== ENCOUNTER 2023-11-21 16:30 | Emergency (ER) | payer OTHER ==
[~2023-11-21] VITALS: Ht 157.5 cm; Wt 108.9 kg
[2023-11-21 16:36] VITALS: BP_SYST 106; PULSE 88; RESP 17; TEMP 99.2; O2SAT 97
[2023-11-21 18:00] LABS: INFLUENZA TYPE A Negative (NEGATIVE); INFLUENZA TYPE B NEGATIVE (NEGATIVE)
[2023-11-21] MEDS: guaiFENesin/DEXTROMETHORPHAN 10 ML UDC PO ONE (18:55)
[2023-11-21] MEDS: KETOROLAC TROMETHAMINE 30 MG VIAL IM ONE (18:55)
[2023-11-21 19:55] LABS: HEMOGLOBIN 9.8 g/dL (12.0-16.0); MEAN CORPUSCULAR VOLUME 84 fL (79.0-98.0); WHITE BLOOD COUNT (AUTO) 11.2 K/uL (4.8-10.8)
[2023-11-21 19:59] LABS: BASOPHILS % (AUTO) 0.3 % (0.0-2.0); EOSINOPHILS # (AUTO) 0.1 K/uL (0.0-0.4); EOSINOPHILS % (AUTO) 1.3 % (0.0-4.0); HEMATOCRIT 29.5 % (36-48); LYMPHOCYTES # (AUTO) 1.3 K/uL (1.0-5.5); LYMPHOCYTES % (AUTO) 11.9 % (20.5-51.5); MEAN CORPUSCULAR HEMOGLOBIN 28 pg (27-31); MEAN CORPUSCULAR HGB CONC 33 % (32-36); MONOCYTES % (AUTO) 8.6 % (1.7-9.3); NEUTROPHILS # (AUTO) 8.7 K/uL (1.8-7.7); NEUTROPHILS % (AUTO) 77.9 % (40.0-70.0); PLATELET COUNT (AUTO) 269 K/uL (130-430); RED BLOOD CELL COUNT(AUTO) 3.51 MIL/uL (4.2-6.2); RED CELL DISTRIBUTION WIDTH 13.2 % (9.0-15.0)
[2023-11-21 20:02] LABS: ALANINE AMINOTRANSFERASE 16 U/L (12-78); ALBUMIN 3.1 g/dL (3.4-4.8); ANION GAP 10 (5-15); ASPARTATE AMINOTRANSFERASE 13 U/L (10-37); CALCIUM 8.6 mg/dL (8.4-11.0); CARBON DIOXIDE 23 mmol/L (23-29); CHLORIDE 105 mmol/L (98-107); CREATININE 2.36 mg/dL (0.55-1.30); GLUCOSE 125 mg/dL (74-106); POTASSIUM 4.6 mmol/L (3.5-5.1); SODIUM SERUM 138 mmol/L (136-145); TOTAL BILIRUBIN 0.8 mg/dL (0.0-1.0); TOTAL PROTEIN, SERUM 8.5 g/dL (6.4-8.3); UREA NITROGEN, BLOOD 31 mg/dL (8-21)
[2023-11-21 20:04] LABS: BILIRUBIN,DIRECT 0.2 mg/dL (0.0-0.3)
[2023-11-21] MEDS ORDERED: DICL20GE TP (20:57)
[2023-11-21] MEDS ORDERED: CEPH-548 PO (20:57)
[2023-11-21] MEDS: cephALEXin 500 MG CAPSULE PO ONE (21:41)
[2023-11-21 22:25] VITALS: BP_SYST 95; PULSE 75; RESP 18; TEMP 97; O2SAT 98
== END 2023-11-21 22:25 | disposition home or self-care (01) ==
LOC: SED 16:30
DX: L03.116 Cellulitis of left lower limb (principal); Z20.822 Contact with and (suspected) exposure to COVID-19; N17.9 Acute kidney failure, unspecified; I10 Essential (primary) hypertension; Z79.899 Other long term (current) drug therapy
CPT/HCPCS: 99285; 93971; 71045; 87426; 80076; 80048; 83880; 85025; 84484; 36415; 93005; 96372; 87804 ×2; J1885

== ENCOUNTER 2024-01-09 11:15 | Inpatient (IN) | payer OTHER ==
[~2024-01-09] VITALS: Ht 157.5 cm; Wt 100.8 kg
[2024-01-09] VITALS (10 sets, daily range): BP systolic 76–139; PULSE 60–78; RESP 15–18; TEMP 96.9–97.7; O2SAT 98–100
[~2024-01-09 11:15] MED LIST changes: +CEPH-548 PO; +DICL20GE TP
[2024-01-09] MEDS: NACL 0.9% 2,000 ML IV ONE (11:57)
[2024-01-09 12:08] LABS: HEMATOCRIT 27.3 % (36-48); HEMOGLOBIN 8.7 g/dL (12.0-16.0); MEAN CORPUSCULAR HEMOGLOBIN 27 pg (27-31); MEAN CORPUSCULAR HGB CONC 32 % (32-36); MEAN CORPUSCULAR VOLUME 85 fL (79.0-98.0); PLATELET COUNT (AUTO) 322 K/uL (130-430); RED BLOOD CELL COUNT(AUTO) 3.19 MIL/uL (4.2-6.2); RED CELL DISTRIBUTION WIDTH 14.2 % (9.0-15.0)
[2024-01-09 12:18] LABS: WHITE BLOOD COUNT (AUTO) 9.3 K/uL (4.8-10.8)
[2024-01-09 12:21] LABS: INR 1.2 (0.8-1.2); PROTHROMBIN TIME 12.8 SECS (9.5-12.5)
[2024-01-09 12:36] LABS: ALANINE AMINOTRANSFERASE 9 U/L (12-78); ANION GAP 19 (5-15); ASPARTATE AMINOTRANSFERASE 15 U/L (10-37); BILIRUBIN,DIRECT 0.3 mg/dL (0.0-0.3); CALCIUM 8.7 mg/dL (8.4-11.0); CARBON DIOXIDE 17 mmol/L (23-29); CHLORIDE 97 mmol/L (98-107); CREATINE KINASE, TOTAL 62 U/L (26-192); CREATININE 4.45 mg/dL (0.55-1.30); FREE T4 (FREE THYROXINE) 1.4 ng/dL (0.6-1.6); GLUCOSE 87 mg/dL (74-106); POTASSIUM 3.9 mmol/L (3.5-5.1); SODIUM SERUM 133 mmol/L (136-145); THYROID STIMULATING HORMONE 2.12 uIu/mL (0.34-4.82); TOTAL BILIRUBIN 0.7 mg/dL (0.0-1.0); UREA NITROGEN, BLOOD 65 mg/dL (8-21)
[2024-01-09 13:24] LABS: ATYPICAL LYMPHOCYTES % 0 % (0-0); BAND % (MANUAL) 14 % (0-6); EOSINOPHILS % (MANUAL) 1 % (0-7); LYMPHOCYTES % (MANUAL) 9 % (20-46); MONOCYTES % (MANUAL) 16 % (0-11); MYELOCYTES % 2 % (0-0)
[2024-01-09 13:25] LABS: ANISOCYTOSIS 1+; HYPOCHROMASIA 1+; PLATELET ESTIMATE ADEQUATE (ADEQUATE)
[2024-01-09 13:34] LABS: BASOPHILS % (MANUAL) 0 % (0-2)
[2024-01-09] MEDS: NACL 0.9% 1,000 ML IV ONE (14:52)
[2024-01-09 15:52] LABS: INFLUENZA TYPE A Negative (NEGATIVE); INFLUENZA TYPE B NEGATIVE (NEGATIVE)
[2024-01-09] MEDS: PIPERACILLIN/TAZO 3.375 GM in NS 50 ML IV ONE (16:55)
[2024-01-09] MEDS ORDERED: PIPERACILLIN/TAZOBACTAM 3.375 GM/VIAL (ZOSYN) IV ONE (16:57)
[2024-01-09] MEDS ORDERED: FOLI0.4T6 (18:02)
[2024-01-09] MEDS ORDERED: NEU300 (18:02)
[2024-01-09] MEDS ORDERED: LISI20TA30 (18:02)
[2024-01-09] MEDS ORDERED: ONDA4TAB5 (18:02)
[2024-01-09] MEDS ORDERED: APIX2.5T (18:02)
[2024-01-09] MEDS: NEPHROVITE, (FOLIC ACID/VITAMIN B COMP W-C 1 TAB) PO ONE (20:30)
[2024-01-09] MEDS: APIXABAN 2.5 MG TABLET PO ONE (20:30)
[2024-01-09] MEDS: GABAPENTIN 300 MG CAPSULE PO ONE (20:41)
[2024-01-09] MEDS: NITROFURANTOIN MONOHYD/M-CRYST 100 MG CAPSULE (MacroBID) PO SCH (20:42)
[2024-01-09] MEDS: NOREPINEPHRINE BITARTRATE 4 MG in D5W 246 ML IV PRN (21:08)
[2024-01-09] MEDS: NACL 0.9% 1,000 ML IV SCH (21:38)
[2024-01-10] VITALS (26 sets, daily range): BP systolic 84–128; PULSE 55–79; RESP 10–23; TEMP 97.6–98.4; O2SAT 96–100
[2024-01-10] MEDS: PIPERACILLIN/TAZOBACTAM 2.25 GM VIAL IV ONE (03:03)
[2024-01-10] MEDS: PIPERACILLIN/TAZOBACTAM 2.25 GM in NS 50 ML IV ONE ×2 (03:06→10:05)
[2024-01-10] MEDS: NOREPINEPHRINE 4 MG/4 ML VIAL IV ONE (03:28)
[2024-01-10 07:19] LABS: BASOPHILS % (AUTO) 0.4 % (0.0-2.0); EOSINOPHILS # (AUTO) 0.2 K/uL (0.0-0.4); EOSINOPHILS % (AUTO) 1.8 % (0.0-4.0); HEMATOCRIT 25.5 % (36-48); HEMOGLOBIN 8.1 g/dL (12.0-16.0); LYMPHOCYTES # (AUTO) 1.1 K/uL (1.0-5.5); MEAN CORPUSCULAR HEMOGLOBIN 27 pg (27-31); MEAN CORPUSCULAR HGB CONC 32 % (32-36); MEAN CORPUSCULAR VOLUME 86 fL (79.0-98.0); NEUTROPHILS # (AUTO) 8.6 K/uL (1.8-7.7); PLATELET COUNT (AUTO) 336 K/uL (130-430); RED BLOOD CELL COUNT(AUTO) 2.98 MIL/uL (4.2-6.2); RED CELL DISTRIBUTION WIDTH 13.8 % (9.0-15.0)
[2024-01-10 07:34] LABS: ALANINE AMINOTRANSFERASE 10 U/L (12-78); ALBUMIN 2.5 g/dL (3.4-4.8); ANION GAP 15 (5-15); ASPARTATE AMINOTRANSFERASE 15 U/L (10-37); CALCIUM 7.8 mg/dL (8.4-11.0); CARBON DIOXIDE 18 mmol/L (23-29); CHLORIDE 104 mmol/L (98-107); CREATININE 3.29 mg/dL (0.55-1.30); GLUCOSE 99 mg/dL (74-106); POTASSIUM 3.2 mmol/L (3.5-5.1); SODIUM SERUM 137 mmol/L (136-145); TOTAL BILIRUBIN 0.5 mg/dL (0.0-1.0); UREA NITROGEN, BLOOD 53 mg/dL (8-21)
[2024-01-10 07:42] LABS: NEUTROPHILS % (AUTO) 71.8 % (40.0-70.0)
[2024-01-10] MEDS: KCL 40 mEq in 100 mL (PREMIX) 100 ML IV ONE (10:02)
[2024-01-10] MEDS: GABAPENTIN 300 MG CAPSULE PO SCH (10:03)
[2024-01-10] MEDS: ONDANSETRON HCL 4 MG/2 ML VIAL IM PRN (10:03)
[2024-01-10] MEDS: NEPHROVITE, (FOLIC ACID/VITAMIN B COMP W-C 1 TAB) PO SCH (10:04)
[2024-01-10] MEDS: APIXABAN 2.5 MG TABLET PO SCH (10:04)
[2024-01-10 19:05] LABS: POTASSIUM 3.7 mmol/L (3.5-5.1)
[2024-01-10] MEDS: VANCOMYCIN HCL 1,000 MG in NS 250 ML IV SCH (19:35)
[2024-01-11] VITALS (26 sets, daily range): BP systolic 84–129; PULSE 58–91; RESP 11–32; TEMP 97.8–98.1; O2SAT 96–100
[2024-01-11 05:40] LABS: BILIRUBIN,URINE NEGATIVE (NEGATIVE); COLOR,URINE YELLOW (YELLOW); GLUCOSE,URINE NEGATIVE (NEGATIVE); KETONES,URINE TRACE (NEGATIVE); LEUKOCYTE ESTERASE ,URINE NEGATIVE (NEGATIVE); NITRITE, URINE NEGATIVE (NEGATIVE); PROTEIN URINE NEGATIVE (NEGATIVE); UROBILINOGEN,URINE 0.2 (0.2-1.0)
[2024-01-11 06:03] LABS: BLOOD, URINE TRACE (NEGATIVE)
[2024-01-11 06:12] LABS: CLARITY/URINE HAZY (CLEAR)
[2024-01-11 06:23] LABS: BACTERIA,URINE None Seen /HPF (None Seen); WBC,URINE 0-3 /HPF (0-3)
[2024-01-11 07:07] LABS: ALANINE AMINOTRANSFERASE 10 U/L (12-78); ALBUMIN 2.5 g/dL (3.4-4.8); ANION GAP 12 (5-15); ASPARTATE AMINOTRANSFERASE 16 U/L (10-37); CALCIUM 8.1 mg/dL (8.4-11.0); CARBON DIOXIDE 19 mmol/L (23-29); CHLORIDE 109 mmol/L (98-107); CREATININE 2.29 mg/dL (0.55-1.30); GLUCOSE 118 mg/dL (74-106); POTASSIUM 3.7 mmol/L (3.5-5.1); SODIUM SERUM 140 mmol/L (136-145); TOTAL BILIRUBIN 0.5 mg/dL (0.0-1.0); TOTAL PROTEIN, SERUM 5.9 g/dL (6.4-8.3); UREA NITROGEN, BLOOD 35 mg/dL (8-21)
[2024-01-11 07:08] LABS: BASOPHILS # (AUTO) 0.1 K/uL (0.0-0.2); BASOPHILS % (AUTO) 0.5 % (0.0-2.0); EOSINOPHILS # (AUTO) 0.4 K/uL (0.0-0.4); EOSINOPHILS % (AUTO) 2.6 % (0.0-4.0); HEMATOCRIT 25.5 % (36-48); HEMOGLOBIN 8.2 g/dL (12.0-16.0); LYMPHOCYTES # (AUTO) 0.7 K/uL (1.0-5.5); LYMPHOCYTES % (AUTO) 4.5 % (20.5-51.5); MEAN CORPUSCULAR HEMOGLOBIN 27 pg (27-31); MEAN CORPUSCULAR HGB CONC 32 % (32-36); MEAN CORPUSCULAR VOLUME 85 fL (79.0-98.0); MONOCYTES # (AUTO) 1.8 K/uL (0.0-1.0); MONOCYTES % (AUTO) 12.3 % (1.7-9.3); NEUTROPHILS # (AUTO) 11.8 K/uL (1.8-7.7); NEUTROPHILS % (AUTO) 80.1 % (40.0-70.0); PLATELET COUNT (AUTO) 297 K/uL (130-430); RED BLOOD CELL COUNT(AUTO) 2.99 MIL/uL (4.2-6.2); RED CELL DISTRIBUTION WIDTH 13.9 % (9.0-15.0); WHITE BLOOD COUNT (AUTO) 14.7 K/uL (4.8-10.8)
[2024-01-11] MEDS: PIPERACILLIN/TAZOBACTAM 2.25 GM in NS 50 ML IV ONE (10:29)
[2024-01-11] MEDS: NS 500 ML IV ONE (11:53)
[2024-01-11] MEDS: CEFEPIME 2 GM in D5W 100 ML IV SCH (12:55)
[2024-01-11] MEDS: SODIUM BICARBONATE 8.4% JECT 50 MEQ in 0.45% NACL 1,000 ML IVP SCH (15:29)
[2024-01-11] MEDS: ACETAMINOPHEN 500 MG TABLET PO PRN (20:57)
[2024-01-12] VITALS (19 sets, daily range): BP systolic 87–136; PULSE 58–74; RESP 9–34; TEMP 97.3–98.6; O2SAT 98–100
[2024-01-12] MEDS: MORPHINE 2 MG/ML INJ. SYRINGE IVP PRN (00:11)
[2024-01-12 06:47] LABS: ANION GAP 9 (5-15); CALCIUM 7.4 mg/dL (8.4-11.0); CARBON DIOXIDE 20 mmol/L (23-29); CHLORIDE 112 mmol/L (98-107); CREATININE 1.76 mg/dL (0.55-1.30); GLUCOSE 93 mg/dL (74-106); POTASSIUM 3.5 mmol/L (3.5-5.1); SODIUM SERUM 141 mmol/L (136-145); UREA NITROGEN, BLOOD 25 mg/dL (8-21)
[2024-01-12 07:26] LABS: BASOPHILS % (AUTO) 0.4 % (0.0-2.0); EOSINOPHILS # (AUTO) 0.4 K/uL (0.0-0.4); EOSINOPHILS % (AUTO) 4.1 % (0.0-4.0); LYMPHOCYTES % (AUTO) 11.7 % (20.5-51.5); MEAN CORPUSCULAR HEMOGLOBIN 27 pg (27-31); MEAN CORPUSCULAR HGB CONC 32 % (32-36); MEAN CORPUSCULAR VOLUME 85 fL (79.0-98.0); MONOCYTES # (AUTO) 1.3 K/uL (0.0-1.0); MONOCYTES % (AUTO) 14.9 % (1.7-9.3); NEUTROPHILS % (AUTO) 68.9 % (40.0-70.0); PLATELET COUNT (AUTO) 174 K/uL (130-430); RED CELL DISTRIBUTION WIDTH 14.4 % (9.0-15.0); WHITE BLOOD COUNT (AUTO) 8.7 K/uL (4.8-10.8)
[2024-01-12 08:26] LABS: HEMATOCRIT 21.3 % (36-48); HEMOGLOBIN 6.8 g/dL (12.0-16.0)
[2024-01-12] MEDS: VANCOMYCIN HCL ORAL SOLUTION 25 MG/ML, 150 ML PO SCH (14:07)
[2024-01-12] MEDS: LACTOBACILLUS RHAMNOSUS GG 1 CAP CAPSULE PO SCH (20:51)
[2024-01-13] VITALS: BP_SYST 125; PULSE 70; RESP 21; O2SAT 99
[2024-01-13 02:01] LABS: HEMATOCRIT 23.8 % (36-48); HEMOGLOBIN 7.9 g/dL (12.0-16.0)
[2024-01-13 03:40] VITALS: BP_SYST 121; PULSE 77; RESP 18; O2SAT 94
[2024-01-13 08:00] VITALS: BP_SYST 119; PULSE 73; RESP 18; TEMP 98.8; O2SAT 95; O2SAT 98
[2024-01-13 10:12] LABS: ALANINE AMINOTRANSFERASE 5 U/L (12-78); ANION GAP 8 (5-15); ASPARTATE AMINOTRANSFERASE 17 U/L (10-37); CALCIUM 7.1 mg/dL (8.4-11.0); CARBON DIOXIDE 23 mmol/L (23-29); CHLORIDE 110 mmol/L (98-107); CREATININE 1.44 mg/dL (0.55-1.30); GLUCOSE 105 mg/dL (74-106); POTASSIUM 3.8 mmol/L (3.5-5.1); SODIUM SERUM 141 mmol/L (136-145); TOTAL BILIRUBIN 0.6 mg/dL (0.0-1.0); TOTAL PROTEIN, SERUM 5.4 g/dL (6.4-8.3); UREA NITROGEN, BLOOD 18 mg/dL (8-21)
[2024-01-13 10:14] LABS: BASOPHILS % (AUTO) 0.2 % (0.0-2.0); EOSINOPHILS # (AUTO) 0.2 K/uL (0.0-0.4); EOSINOPHILS % (AUTO) 1.8 % (0.0-4.0); HEMATOCRIT 25.9 % (36-48); HEMOGLOBIN 8.7 g/dL (12.0-16.0); LYMPHOCYTES # (AUTO) 0.8 K/uL (1.0-5.5); LYMPHOCYTES % (AUTO) 7.5 % (20.5-51.5); MEAN CORPUSCULAR HEMOGLOBIN 28 pg (27-31); MEAN CORPUSCULAR HGB CONC 34 % (32-36); MEAN CORPUSCULAR VOLUME 85 fL (79.0-98.0); MONOCYTES # (AUTO) 1.5 K/uL (0.0-1.0); MONOCYTES % (AUTO) 13.9 % (1.7-9.3); NEUTROPHILS # (AUTO) 8.3 K/uL (1.8-7.7); NEUTROPHILS % (AUTO) 76.6 % (40.0-70.0); PLATELET COUNT (AUTO) 161 K/uL (130-430); RED BLOOD CELL COUNT(AUTO) 3.07 MIL/uL (4.2-6.2); RED CELL DISTRIBUTION WIDTH 15.3 % (9.0-15.0); WHITE BLOOD COUNT (AUTO) 10.8 K/uL (4.8-10.8)
[2024-01-13 11:08] VITALS: BP_SYST 117; PULSE 79; RESP 18; TEMP 98.7; O2SAT 95
[2024-01-13] MEDS ORDERED: VANC25SO PO ×2 (13:08→16:48)
[2024-01-13 16:07] VITALS: BP_SYST 123; PULSE 76; RESP 18; TEMP 98.5; O2SAT 95
[2024-01-13 20:00] VITALS: BP_SYST 108; PULSE 77; RESP 18; TEMP 97.6; O2SAT 95
[2024-01-14] VITALS (7 sets, daily range): BP systolic 102–118; PULSE 72–81; RESP 18–19; TEMP 97.4–98.1; O2SAT 94–99
[2024-01-15] VITALS (7 sets, daily range): BP systolic 110–125; PULSE 69–96; RESP 18; TEMP 96.9–98.1; O2SAT 95–99
[2024-01-16 00:29] VITALS: BP_SYST 110; PULSE 70; RESP 18; TEMP 97.8; O2SAT 100
[2024-01-16 08:00] VITALS: BP_SYST 105; PULSE 74; RESP 17; TEMP 96.9; O2SAT 99
[2024-01-16 09:30] VITALS: O2SAT 99
[2024-01-16 10:43] LABS: BASOPHILS # (AUTO) 0.1 K/uL (0.0-0.2); BASOPHILS % (AUTO) 0.7 % (0.0-2.0); EOSINOPHILS # (AUTO) 0.2 K/uL (0.0-0.4); HEMOGLOBIN 8.4 g/dL (12.0-16.0); LYMPHOCYTES % (AUTO) 9.4 % (20.5-51.5); MEAN CORPUSCULAR HEMOGLOBIN 28 pg (27-31); MEAN CORPUSCULAR HGB CONC 32 % (32-36); MEAN CORPUSCULAR VOLUME 86 fL (79.0-98.0); MONOCYTES # (AUTO) 1.1 K/uL (0.0-1.0); MONOCYTES % (AUTO) 10.3 % (1.7-9.3); NEUTROPHILS # (AUTO) 8.5 K/uL (1.8-7.7); NEUTROPHILS % (AUTO) 77.6 % (40.0-70.0); PLATELET COUNT (AUTO) 117 K/uL (130-430); RED BLOOD CELL COUNT(AUTO) 3.02 MIL/uL (4.2-6.2); RED CELL DISTRIBUTION WIDTH 15.1 % (9.0-15.0)
[2024-01-16 10:59] LABS: ALANINE AMINOTRANSFERASE 13 U/L (12-78); ALBUMIN 1.9 g/dL (3.4-4.8); ANION GAP 9 (5-15); ASPARTATE AMINOTRANSFERASE 30 U/L (10-37); CALCIUM 7.2 mg/dL (8.4-11.0); CARBON DIOXIDE 25 mmol/L (23-29); CHLORIDE 106 mmol/L (98-107); CREATININE 1.21 mg/dL (0.55-1.30); GLUCOSE 101 mg/dL (74-106); SODIUM SERUM 140 mmol/L (136-145); TOTAL BILIRUBIN 0.5 mg/dL (0.0-1.0); TOTAL PROTEIN, SERUM 5.7 g/dL (6.4-8.3); UREA NITROGEN, BLOOD 10 mg/dL (8-21)
[2024-01-16 11:02] LABS: POTASSIUM 2.9 mmol/L (3.5-5.1)
[2024-01-16 11:05] VITALS: BP_SYST 120; PULSE 74; RESP 18; TEMP 97.9; O2SAT 100
[2024-01-16] MEDS: POTASSIUM CHLORIDE 20 MEQ TABLET.ER PO ONE ×2 (14:40→17:00)
[2024-01-16 16:18] VITALS: BP_SYST 126; PULSE 69; RESP 18; TEMP 97.6; O2SAT 100
[2024-01-16 20:02] VITALS: BP_SYST 108; PULSE 87; RESP 20; TEMP 98.7; O2SAT 99
[2024-01-17] VITALS: BP_SYST 106; PULSE 76; RESP 18; TEMP 97.6; O2SAT 99
[2024-01-17 08:00] VITALS: BP_SYST 106; PULSE 78; RESP 24; TEMP 97.2; O2SAT 100
[2024-01-17] MEDS ORDERED: HYDROcodone/ACETAMIN 5-325 MG TAB (NORCO/ VICODIN) PO PRN (09:15)
[2024-01-17] MEDS ORDERED: POTASSIUM CHLORIDE 20 MEQ TABLET.ER PO ONE (09:15)
[2024-01-17] MEDS ORDERED: KCL 20 mEq in 100 mL (PREMIX) 100 ML IV ONE (09:15)
[2024-01-17 11:09] VITALS: BP_SYST 104; PULSE 76; RESP 16; TEMP 97.7; O2SAT 95
[2024-01-17 11:23] LABS: BASOPHILS % (AUTO) 0.4 % (0.0-2.0); EOSINOPHILS # (AUTO) 0.2 K/uL (0.0-0.4); EOSINOPHILS % (AUTO) 2.1 % (0.0-4.0); HEMATOCRIT 24.7 % (36-48); HEMOGLOBIN 8.1 g/dL (12.0-16.0); LYMPHOCYTES # (AUTO) 0.9 K/uL (1.0-5.5); LYMPHOCYTES % (AUTO) 9.9 % (20.5-51.5); MEAN CORPUSCULAR HEMOGLOBIN 28 pg (27-31); MEAN CORPUSCULAR HGB CONC 33 % (32-36); MEAN CORPUSCULAR VOLUME 85 fL (79.0-98.0); MONOCYTES # (AUTO) 0.8 K/uL (0.0-1.0); MONOCYTES % (AUTO) 9.3 % (1.7-9.3); NEUTROPHILS % (AUTO) 78.3 % (40.0-70.0); PLATELET COUNT (AUTO) 129 K/uL (130-430); RED CELL DISTRIBUTION WIDTH 15.1 % (9.0-15.0)
[2024-01-17 11:37] LABS: ERYTHROCYTE SEDIMENTATION RATE 66 MM/HR (0-20)
[2024-01-17 12:01] LABS: ANION GAP 9 (5-15); CALCIUM 7.6 mg/dL (8.4-11.0); CARBON DIOXIDE 26 mmol/L (23-29); CHLORIDE 106 mmol/L (98-107); CREATININE 1.19 mg/dL (0.55-1.30); GLUCOSE 102 mg/dL (74-106); POTASSIUM 3.8 mmol/L (3.5-5.1); SODIUM SERUM 141 mmol/L (136-145); UREA NITROGEN, BLOOD 8 mg/dL (8-21)
[2024-01-17] MEDS ORDERED: LACT1CAP57 PO (12:34)
[2024-01-17] MEDS ORDERED: VANC125C10 PO (12:34)
[2024-01-17 15:26] VITALS: BP_SYST 112; PULSE 77; RESP 16; TEMP 97.6; O2SAT 99
[2024-01-17 16:43] VITALS: BP_SYST 112; PULSE 77; RESP 16; TEMP 97.6; O2SAT 99
== END 2024-01-17 19:46 | disposition home or self-care (01) | DRG 871 ==
LOC: SED 11:15 → STU 17:28 → SIC 20:31 → STU 01-13 01:26 → SMU 01-14 10:06
PROVIDERS: ADMIT Student in an Organized Health Care Education/Training Program; ATTEND Student in an Organized Health Care Education/Training Program
PROC: 02HV33Z Insertion of Infusion Device into Superior Vena Cava, Percutaneous Approach (ICD-10-PCS; principal; 2024-01-09)
DX: A41.9 Sepsis, unspecified organism (principal); R65.21 Severe sepsis with septic shock; E87.1 Hypo-osmolality and hyponatremia; N17.9 Acute kidney failure, unspecified; A04.72 Enterocolitis due to Clostridium difficile, not specified as recurrent; L03.116 Cellulitis of left lower limb; L03.115 Cellulitis of right lower limb; N39.0 Urinary tract infection, site not specified; Z68.41 Body mass index [BMI] 40.0-44.9, adult; I95.9 Hypotension, unspecified; D64.9 Anemia, unspecified; E11.22 Type 2 diabetes mellitus with diabetic chronic kidney disease; E66.01 Morbid (severe) obesity due to excess calories; N18.30 Chronic kidney disease, stage 3 unspecified; E87.6 Hypokalemia; I12.9 Hypertensive chronic kidney disease with stage 1 through stage 4 chronic kidney disease, or unspecified chronic kidney disease; Z90.49 Acquired absence of other specified parts of digestive tract; Z86.718 Personal history of other venous thrombosis and embolism; Z79.01 Long term (current) use of anticoagulants; Z79.899 Other long term (current) drug therapy; Z88.8 Allergy status to other drugs, medicaments and biological substances
CPT/HCPCS: 36415; 71045; 76700; 80048; 80053; 80076; 81000; 81001; 81015; 82272; 82550; 83605; 84132; 84302; 84439; 84443; 84484; 85007; 85018; 85025; 85027; 85610; 85651; 85730; 86886; 86900; 86901; 86920; 87040; 87045-TC; 87046; 87081; 87086; 87230; 89055; 93005; 93306; 97110-GP; 97530-GP; 99285; J0692; J2270; J2405; J2543; J3370; J3480; J7050; J7060; P9021